=== PATIENT | female | born 1955 | race Caucasian/White ===

== ENCOUNTER 2019-01-11 10:32 | Inpatient (IN) | payer OTHER ==
--- NOTE | 2019-01-11 10:46 | ED ---
Psychiatric Complaint - HPI Summary HPI Summary: This patient is a 63 year old F presenting to ED chief complaint of "hearing mean voices". Two years ago the patients maribel was diagnosed with inoperable glioblastoma so he underwent chemotherapy. Patient was furious and angry and took a long time to understand it. Patients maribel was doing well on treatment , but he got pneumonia and passed this past July. Patient feels lost without him and is having trouble adapting. She has difficulty remembering things and is getting confused. She is sleeping a lot, but is eating normally. She reports no SI/HI in the room but states she took 8 pills of Tylenol at once a while ago. She has not taken any Tylenol today. The patient rates the pain 0/10 in severity. Symptoms aggravated by recent stress of fiance medical conditions. Symptoms alleviated by nothing. Patient denies fever. - History Of Current Complaint Hx Obtained From: Patient Onset/Duration: Gradual Onset, Lasting Weeks - 2 years, Still Present, Worse Since Timing: Constant Severity Initially: Moderate Severity Currently: Moderate Character: Depressed, Angry Aggravating Factor(s): Recent Stress - Patient's fiance dx with glioblastoma and recently passed Alleviating Factor(s): Nothing Associated Signs And Symptoms: Positive: Confused, Sleep Disturbance. Negative : Appetite Change Has Suicidal: Denies: Thoughts Has Homicidal: Denies: Thoughts Recent Stressor(s): Fiance medical conditions and passing - Allergies/Home Medications Allergies/Adverse Reactions: Allergies Allergy/AdvReac Type Severity Reaction Status Date / Time codeine Allergy Tongue Verified 01/11/19 10:49 swelling olopatadine [From Patanol] Allergy Eye Verified 01/11/19 10:49 swelling oxycodone Allergy Makes Verified 01/11/19 10:49 patient feel awful Tetanus Vaccines and Toxoid Allergy Muscle Ache Verified 01/11/19 10:49 Home Medications: Home Medications Acetaminophen/Diphenhydramine [Tylenol Pm Ex-Strength Caplet] 1 each PO BEDTIME 01/11/19 [History Confirmed 01/11/19] Black Cohosh Root Extract [Black Cohosh Extract] 80 mg PO DAILY 01/11/19 [ History Confirmed 01/11/19] Carisoprodol TAB* [Soma TAB*] 250 mg PO TID PRN 01/11/19 [History Confirmed ] Cinnamon Bark [Cinnamon] 1,000 mg PO DAILY 01/11/19 [History Confirmed 01/11/19] Flaxseed Oil [Myra-3 Flaxseed Oil] 1,000 mg PO BID 01/11/19 [History Confirmed 01/11/19] Fluticasone Propionate [24 Hour Allergy Relief] 2 spray BOTH NARES DAILY [History Confirmed 01/11/19] Ibuprofen TAB* [Advil TAB*] 200 mg PO Q8H PRN 01/11/19 [History Confirmed ] Lidocaine 2% VISCOUS* 5 ml SWISH SPIT .Q3-4H PRN 01/11/19 [History Confirmed ] Losartan Potassium [Cozaar] 50 mg PO DAILY 01/11/19 [History Confirmed 01/11/19] Magnesium Oxide [Magnesium] 300 mg PO DAILY 01/11/19 [History Confirmed 01/11/19 ] Menthol [Absorbine Pain Relieving] 1 applic TOPICAL DAILY PRN 01/11/19 [History Confirmed 01/11/19] Methyl Salicylate/Menth/Camph [[place] Muscle Rub] 1 applic TOPICAL DAILY [History Confirmed 01/11/19] Naproxen [Naproxen 500 mg tab] 500 mg PO BID 01/11/19 [History Confirmed ] PARoxetine HCL TAB* [Paxil TAB*] 20 mg PO DAILY 01/11/19 [History Confirmed ] Pioglitazone HCl 45 mg PO DAILY 01/11/19 [History Confirmed 01/11/19] Triamcinolone 0.1% OINT(NF) [Kenolog 0.1% OINT(NF)] 1 applic TOPICAL BID [History Confirmed 01/11/19] Vitamin A 8,000 unit PO DAILY 01/11/19 [History Confirmed 01/11/19] diPHENhydraMINE PO* [Benadryl PO 25 MG TAB*] 25 mg PO Q6H PRN 01/11/19 [History Confirmed 01/11/19] glipiZIDE TAB* [Glucotrol TAB*] 10 mg PO QAM 01/11/19 [History Confirmed ] glipiZIDE TAB* [Glucotrol TAB*] 10 mg PO QPM 01/11/19 [History Confirmed ] hydrOXYzine pamoate [Hydroxyzine Pamoate] 25 - 50 mg PO QID PRN 01/11/19 [ History Confirmed 01/11/19] PMH/Surg Hx/FS Hx/Imm Hx Endocrine/Hematology History: Reports: Hx Diabetes Cardiovascular History: Reports: Hx Hypertension Denies: Hx Pacemaker/ICD Respiratory History: Reports: Hx Asthma History: Denies: Hx Renal Disease Musculoskeletal History: Reports: Other Musculoskeletal History - left shoulder pinched nerve Sensory History: Reports: 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 HYSTERECTOMY,. RHINOPLASTY(BONE REMOVAL IN SINUS) - Family History Known Family History: Positive: Hypertension, Other - Stroke - Social History Alcohol Use: Occasionally Hx Substance Use: No Substance Use Type: Reports: None Hx Tobacco Use: No Smoking Status (MU): Never Smoked Tobacco Review of Systems Negative: Fever Neurological: Other - Confusion, difficulty remembering Psychological: Other - "Feels lost", "hearing mean voices" Positive: Depressed All Other Systems Reviewed And Are Negative: Yes Physical Exam - Summary Physical Exam Summary: VITAL SIGNS: Reviewed. GENERAL: Patient is a well-developed and nourished femle who is lying comfortable in the stretcher. Patient is not in any acute respiratory distress. HEAD AND FACE: No signs of trauma. No ecchymosis, hematomas or skull depressions. No sinus tenderness. EYES: PERRLA, EOMI x 2, No injected conjunctiva, no nystagmus. EARS: Hearing grossly intact. Ear canals and tympanic membranes are within normal limits. MOUTH: Oropharynx within normal limits. NECK: Supple, trachea is midline, no adenopathy, no JVD, no carotid bruit, no c- spine tenderness, neck with full ROM. CHEST: Symmetric, no tenderness at palpation. LUNGS: Clear to auscultation bilaterally. No wheezing or crackles. CVS: Regular rate and rhythm, S1 and S2 present, no murmurs or gallops appreciated. ABDOMEN: Soft, non-tender. No signs of distention. No rebound, no guarding, and no masses palpated. Bowel sounds are normal. EXTREMITIES: FROM in all major joints, no edema, no cyanosis or clubbing. NEURO: Alert and oriented x 3. No acute neurological deficits. Speech is normal and follows commands. SKIN: Dry and warm. PSYCH: Depressed, quiet, and denies any suicidal thoughts or plan. No homicidal thoughts or plan. No signs of psychosis or pressure speech. No tangential speech. Triage Information Reviewed: Yes Vital Signs On Initial Exam: Initial Vitals Temp Pulse Resp BP Pulse Ox 99.7 F 95 20 135/75 100 01/11/19 10:42 01/11/19 10:42 01/11/19 10:42 01/11/19 10:42 01/11/19 10:42 Vital Signs Reviewed: Yes Diagnostics - Laboratory Result Diagrams: 01/11/19 10:59 01/11/19 10:59 Lab Statement: Any lab studies that have been ordered have been reviewed, and results considered in the medical decision making process. Course/Dx - Course Assessment/Plan: Blood work w/o a significant abnormality. She is medically cleared. She is awaiting a MHE. Patient is hemodynamically stable and A+O x 3. Patient was evaluated by Dr. Burnett and he recommends admission to his services. Patient will be voluntarily admitted to [facility] psych by Dr. Burnett with dx of unspecified depression. - Differential Dx/Clinical Impression Provider Diagnosis: Depression Discharge ED - Sign-Out/Discharge Documenting (check all that apply): Patient Departure - Admit Patient Received Moderate/Deep Sedation with Procedure: No - Discharge Plan Condition: Fair Disposition: PSYCHIATRIC FACILITY-[facility] - Billing Disposition and Condition Condition: FAIR Disposition: Psychiatric Facility [facility] - Attestation Statements Document Initiated by Scribe: Yes Documenting Scribe: Zain Cronin Provider For Whom Osiel is Documenting (Include Credential): Hakeem Ayoub MD Scribe Attestation: I, Zain Cronin, scribed for Hakeem Ayoub MD on 01/11/19 at 1844. Scribe Documentation Reviewed: Yes Provider Attestation: The documentation as recorded by the Zain lindsay accurately reflects the service I personally performed and the decisions made by me, Hakeem Ayoub MD Status of Scribe Document: Viewed
--- OUTSIDE RECORDS SUMMARY | 2019-01-11 10:59 | XMS REPORT | Continuity of Care Document ---
:1955 External Reference #:[id number] Author Name Ivan Hensleytay Care Team Providers Name Role Phone Hakeem Crooks III, MD Primary Care Physician Unavailable Payers Date Identification Numbers Payment Provider Subscriber Effective: 2018 Policy Number: [id number]/[employer] Lupe Barnes PayID: [id number] [address] [address] [place] [address] Effective: 2016 Policy Number: [id number] [place] Lupe Halle Cameron Onset: 2016 Group Name: Halle) [phone] [address] [address] PayID: [id number] [place] [address] Effective: 2014 Policy Number: [id number] [facility] Lupe Barnes Expires: 2015 Group Number: [id number] [address] Group Name: [place] [address] PayID: [id number] Expires: 2011 Policy Number: [id number] [facility] Lupe Barnes Group Number: [id number] [address] [address] PayID: [id number] JV De La Cruz [id number] Effective: 2011 Policy Number: [id number] [facility] Lupe Barnes ([place]) Expires: 2014 PayID: [id number] [address] [place] [address] Advance Directives Type Date Description Status Comment Other Directive 12/22/2016 Health Care Proxy Current and Verified Problems Active Problems Provider Date Type 2 diabetes mellitus Prabha Baires N.PRonald Onset: 11/01/2010 Hyperlipidemia Prabha Baires N.Leona Onset: 11/01/2010 Diverticulitis of colon Prabha Baires N.P. Onset: 11/01/2010 Essential hypertension Vivian Fitzgerald M.D. Onset: 10/07/2011 Cervical spondylosis without myelopathy Alex Bui M.D. Onset: 08/11/2014 Adhesive capsulitis of shoulder Tayo Persaud MD Onset: 04/20/2017 Calcific tendinitis of left shoulder Tayo Persaud MD Onset: 04/20/2017 Family History Date Family Member(s) Observation Comments General Hypertension General Diabetes General Heart Disease General Stroke Father due to Tillar's () - age 50 Chorea Mother due to Stroke () - age 62 - HTN, Hyperlipidemia First Brother due to Overdose () - age 21 Second Brother Subtance Abuse Third Brother Etoha Fourth Brother Etoha Fifth Brother Etoha First Sister Etoha Social History Type Date Description Comments Sex Unknown Marital Status Lives With Spouse Occupation [employer] ETOH Use Occasionally consumes alcohol Tobacco Use Start: Unknown Patient has never smoked Recreational Drug Use Denies Drug Use Smoking Status Reviewed: 12/18/18 Patient has never smoked Exercise Type/Frequency Exercises regularly Walks daily Allergies, Adverse Reactions, Alerts Active Allergies Reaction Severity Comments Date Tylenol W/Codeine 07/14/2009 Tetanus 07/14/2009 Statins muscle aches 07/14/2009 Patanol Caused eyes to swell 09/28/2010 Cyclobenzaprine flu-like s/s 04/20/2017 Medications Active Medications SIG Qnty Indications Ordering Date Provider Triamcinolone apply topically to 80gm L20.9 Gustabo Medina NP 09/28/2018 Acetonide affected area(s) 0.1% two times daily Ointment Losartan Potassium 1 by mouth every 30tabs I10 Prabha Baires, 09/24/2018 day N.P. 50mg Tablets Paroxetine HCL 1 by mouth every 30tabs F41.9 Prabha Baires, 09/21/2018 20mg day N.P. Tablets Hydroxyzine Pamoate take 1 to 2 60caps F41.9 Prabha Baires, 08/24/2017 capsules by mouth N.P. 25mg Capsules four times daily as needed for anxiety Fluticasone 2 sprays each 16units J01.90 Gustabo Medina NP 05/25/2017 Propionate nostril qd. 50mcg/Act Suspension Pioglitazone HCL take 1 tablet by 90tabs E11.9 Prabha Viry, 05/25/2017 45mg mouth every day N.P. Tablets Carisoprodol take 1 by mouth 20tabs M75.02 Tayo Persaud, 03/03/2017 250mg three times a day MD Tablets Lidocaine Viscous swish and gargle 5 100ml Prabha Viry, 03/08/2016 2% ml every 3- 4 N.P. Solution hours as needed Glucometer Use to check blood 1units Prabha Viry, 07/03/2015 sugars daily N.P. Test Strips To test glucose 120units Prabha Viry, 07/03/2015 levels: fasting and N.P. 2 hours after meals Lancets To use for glucose 120units Prabha Viry, 07/03/2015 testing 4 times N.P. daily Glipizide take 2 tablets by 360tabs E11.9 Prabha Viry, 08/29/2014 10mg mouth in the N.P. Tablets morning and 2 tablets by mouth at night Naproxen 1 tablet twice a 60tabs M54.2 Prabha Viry, 07/04/2014 500mg day as needed N.P. Tablets Advil 3 qd as needed Hakeem Martin 11/28/2013 200mg Tablets Kacy Crooks Asorbine apply to back and Vivian Fitzgerald, 07/24/2013 4% Menthol calves as needed MLaya Black Cohosh Extract Vivian Fitzgerald, 10/07/2011 MRonaldDRonald 80mg Capsules Benadryl 1 by mouth every Unknown 25mg 6hr as needed Capsules Tylenol PM Extra 1 by mouth every Unknown Strength night at bedtime as 500-25mg needed Tablets Cinnamon 2 by mouth every Unknown 500mg day Capsules Flax Seed Oil 2 by mouth in the Unknown 1000mg am and hs Capsules Lidocaine Viscous Swish And Gargle 5 Unknown 2% ML Every 3- 4 Hours Solution as Needed Fluarix Quadrivalent To Be Administered Unknown By Pharmacist For 0.5ml Raquel Immunization Ramona [place] Muscle Unknown Rub Cream Vitamin A Unknown 8000Unit Capsules Magnesium 1-2 by mouth every Unknown 300mg day Capsules History Medications Ezetimibe 1 by mouth every 30tabs E78.00 Gustabo Medina NP 09/28/2018 - 10mg Tablets day 12/17/2018 Triamcinolone apply thin film 80gm L20.9 Gustabo Medina NP 09/28/2018 - Acetonide twice daily 09/28/2018 0.1% Cream Escitalopram Oxalate 1/2 tab once 30tabs F32.89 Gustabo Medina NP 03/26/2018 - daily for 1 week 09/21/2018 10mg Tablets then increase to 1 tab daily. Paroxetine HCL 1 by mouth every 30tabs F41.9 Gustabo Medina NP 09/19/2017 - 20mg day 03/26/2018 Tablets Crestor one by mouth 45tabs Prabha Baires, 09/01/2017 - 5mg Tablets every other N.P. 03/26/2018 evening Amoxicillin/Clavulana take one tablet 20tabs J01.90 Gustabo Medina NP 2017 - te Potassium q12 hours for 10 06/04/2017 875-125mg days Tablets Valium take 1-2 tabs 30 2tabs Gustabo Medina NP 03/21/2017 - 5mg Tablets min prior to mri 03/26/2018 Livalo one by mouth at 90tabs E78.0 Prabha Baires, 02/21/2017 - 2mg Tablets bedtime N.P. 03/26/2018 Cyclobenzaprine HCL 1 by mouth three 30tabs Prabha Baires, 01/17/2017 - 5mg times a day as N.P. 03/21/2017 Tablets needed muscle spasms Pioglitazone HCL one tab daily 30tabs E11.9 Prabha Baires, 08/25/2016 - 30mg N.P. 05/25/2017 Tablets Valacyclovir HCL 1 tablet three 21tabs B02.9 Gustabo Medina NP 03/30/2016 - 1gm times daily for 7 08/25/2016 Tablets days Pioglitazone HCL One po daily 90tabs E11.9 Prabha Baires, 11/03/2015 - 45mg N.P. 08/25/2016 Tablets Livalo one by mouth at 90tabs E78.0 Gustabo Medina NP 11/03/2015 - 2mg Tablets bedtime 03/30/2016 Lidocaine Viscous swish and gargle 100ml Prabha Varn, 09/10/2015 - 2% 5 ml every 3- 4 N.P. 09/20/2015 Solution hours as needed Levofloxacin 1 by mouth every 10tabs G00.9 George Diaz 07/08/2015 - 500mg day Kacy Cuevas 07/22/2015 Tablets Actos 1 by mouth every 90tabs E11.9 Prabha Baires, 07/07/2015 - 30mg Tablets day N.P. 11/03/2015 Rocephin 2 grams IV in 4units Other Ordering 07/03/2015 - 2Grams 20cc over 10 min Provider 07/07/2015 Solution Rec every 12 hrs through [facility] Pioglitazone HCL 1 by mouth every 90tabs Prabha Baires, 09/05/2014 - 15mg day N.P. 07/07/2015 Tablets Paroxetine HCL take one tablet 60tabs F41.9 Gustabo Medina NP 07/04/2014 - 10mg once daily for 09/19/2017 Tablets one week and increase to two tablets daily. Actos 1 by mouth every 30tabs Prabha Viry, 07/04/2014 - 15mg Tablets day N.P. 09/05/2014 Carisoprodol 1 by mouth three 30tabs M62.838 Prabha Baires, 06/06/2014 - 350mg times daily as N.P. 07/03/2015 Tablets needed Metaxalone take 1 tablet 3 30tabs Prabha Baires, 05/19/2014 - 800mg times a day as N.P. 06/06/2014 Tablets needed Premier Convex Skin Lonnie Diaz 04/28/2014 - Barrier/Nevin Vergara M.D.,FACP 04/28/2014 Flange/1-/4" 1-05/18" Misc Venlafaxine HCL 1 tab po daily 30tabs 300.00 Bong Mejias, 03/19/2014 - 37.5mg [employer] 06/06/2014 Tablets Venlafaxine HCL ER 1 tab po daily 28tabs 300.00 Bong Mejias, 03/19/2014 - 75mg x's 28 days [employer] 04/20/2014 Tablets ER 24HR Venlafaxine HCL 2 tab po daily 60tabs 300.00 Bong Mejias, 03/19/2014 - 75mg [employer] 04/20/2014 Tablets Paroxetine HCL wk 1-2 3 tabs po 84tabs 300.00 Bong Mejias, 03/19/2014 - 10mg daily wk 2-3 2 [employer] 04/25/2014 Tablets tabs po daily wk 4-6 1 tab po daily wk 7 discontinue Baclofen take 1 tablet by 20tabs 300.00 Lonnie Diaz 03/19/2014 - 10mg Tablets mouth three times Kacy Vergara,[facility] 05/19/2014 a day as needed muscle spasm pain Ativan 1 tab po as 30tabs 300.00 Bong Mejias 03/19/2014 - 0.5mg Tablets needed every 8 [employer] 05/06/2014 hours Januvia 1 by mouth every 90tabs 250.00 Hakeem Martin 02/11/2014 - 100mg Tablets day Kacy Crooks 03/18/2014 Paroxetine HCL 1 tablet by mouth 30tabs 300.00 Lonnie Diaz 12/30/2013 - 40mg mouth daily Kacy Vergara,[facility] 03/19/2014 Tablets Augmentin 1 by mouth twice 20tabs Hakeem Martin 11/28/2013 - 875-125mg a day Kacy Crooks 02/11/2014 Tablets Metformin HCL ER Take 1 tablet 30tabs 250.00 Vivian Fitzgerald 10/25/2013 - 750mg daily M.Joe 02/11/2014 Tablets ER 24HR Pravastatin Sodium 1 tablet daily at 30tabs 272.4 Vivian Fitzgerald, 10/25/2013 - 40mg bedtime M.Joe 02/11/2014 Tablets Paroxetine HCL Take 2 tablets 60tabs 300.00 Vivian Fitzgerald, 10/25/2013 - 10mg daily x 1 week, M.Joe 12/09/2013 Tablets then 1 tablet daily x 2 weeks, then 1 tablet every other day x 2 weeks, then stop Amoxicillin/Clavulana 1 by mouth twice 20tabs 465.9 Hakeem Martin 08/21/2013 - te Potassium a day Kacy Crooks 10/25/2013 500-125mg Tablets Tylenol Cold Head prn Hakeem Martin 08/21/2013 - Congestion Day/Night Kacy Crooks 06/06/2014 Capsules Ciprodex instill 4 drops 7.500ml 380.22 Vivian Fitzgerald, 07/24/2013 - 0.3-0.1% into affected ear M.D. 08/25/2016 Suspension 2 times per day Co Q-10 1 po qd 90caps 272.4 Vivian Fitzgerald, 06/17/2013 - 200mg Capsules M.D. 07/24/2013 Metformin HCL 1 po bid 180tabs 250.00 Vivian Fitzgerald, 09/24/2012 - 500mg M.D. 12/12/2012 Tablets Lorazepam take 1 tablet as 30tabs F41.9 Prabha Baires, 09/10/2012 - 0.5mg Tablets needed for N.P. 08/24/2017 anxiety every 8 hours Metformin HCL take one tablet 60tabs 250.00 Vivian Fitzgerald, 09/10/2012 - 1000mg by mouth twice a M.D. 09/24/2012 Tablets day Paroxetine HCL Take 1/2 tablet 90tabs 300.00 Vivian Fitzgerald, 05/22/2012 - 40mg daily M.D. 10/25/2013 Tablets Ofloxacin instill 5 drops 10units Prabha Baires, 02/24/2012 - 0.3% Solution In Affected N.P. 12/12/2012 Ear(S) twice a day for 7 days Niaspan take 1 tablet 90tabs 272.4 Vivian Fitzgerald, 12/23/2011 - 500mg Tablets nightly M.D. 09/10/2012 ER Aspirin Ec Take 1 tablet 250.00 Vivian Fitzgerald, 12/23/2011 - 325mg before niaspan M.D. 08/12/[address] Metformin HCL 1 po bid 180tabs 250.00 Vivian Fitzgerald, 12/23/2011 - 500mg M.D. 09/10/2012 Tablets Ofloxacin 5 gtts affected 10ml 380.22 Prabha Baires, 12/05/2011 - 0.3% Solution ear bid for 7 N.P. 12/12/2011 days Losartan Potassium Take 2 Tablets By 180tabs I10 Prabha Baires, 2011 - 25mg Mouth Once Daily N.P. 09/24/2018 Tablets Paroxetine HCL 1 po qd 90tabs 300.00 Vivian Fitzgerald, 10/07/2011 - 20mg M.D. 05/22/2012 Tablets Lisinopril 1 po qd 30tabs 401.9 Vivian Fitzgerald, 10/07/2011 - 10mg Tablets M.D. 11/29/2011 Metformin HCL 1 po bid Vivian Fitzgerald, 10/07/2011 - 500mg M.D. 12/23/2011 Tablets Glipizide ER 1 by mouth twice 180tabs 250.00 Prabha Baires, 09/26/2011 - 10mg a day N.P. 08/29/2014 Tablets ER 24HR Glipizide ER Take 1 tablet 30tabs 250.00 Vivian Fitzgerald, 08/19/2011 - 10mg daily M.D. 09/07/2011 Tablets ER 24HR Niaspan take 1 tablet 30tabs 272.4 Vivian Fitzgerald, 08/19/2011 - 500mg Tablets nightly M.D. 09/05/2011 ER Lisinopril take 1 tablet 30tabs 401.9 Vivian Fitzgerald, 08/19/2011 - 5mg Tablets orally once a day M.D. 10/07/2011 Buspirone HCL 1 po bid 60tabs 300.00 Josiane 08/05/2011 - 15mg Mayer, M.D. 08/19/2011 Tablets Lorazepam take 1 tablet as 20tabs Vivian Fitzgerald, 08/03/2011 - 0.5mg Tablets needed for M.D. 08/24/2011 anxiety every 8 hours Metformin HCL 1 po bid Vivian Fitzgerald, 07/19/2011 - 500mg M.D. 09/26/2011 Tablets Cortisporin 4gtts tid for 10 10ml 380.22 Vivian Fitzgerald, 07/19/2011 - 3.5-81698-1 days M.D. 07/29/2011 Solution Vicodin 1-2 by mouth 30tabs 380.22 Vivian Fitzgerald 07/19/2011 - 5-500mg Tablets every 4-6 hours M.D. 08/19/2011 and needed for pain Augmentin one by mouth 20tabs 461.9 Vivian Fitzgerald, 07/19/2011 - 875-125mg every 12 hours M.D. 07/29/2011 Tablets for ten days Fluticasone 1 spray each 1units 461.9 Vivian Fitzgerald, 07/19/2011 - Propionate nostril daily as M.D. 10/07/2011 50mcg/Act needed Suspension Metformin HCL 2 po at dinner 180tabs Spring Guillen, 03/30/2011 - 500mg M.D., FACP 07/19/2011 Tablets Augmentin one by mouth 20tabs 461.9 Spring Guillen, 03/09/2011 - 875-125mg every 12 hours M.D., FACP 03/23/2011 Tablets for 14 days Neomycin/Polymyxin/HC 5 gtts in each 10ml 380.10 Spring Guillen, 01/05/2011 - ear qid for 7 - M.D., FACP 01/15/2011 3.5-28505-9 Solution 10 days Cyclobenzaprine HCL take 1-2 tablet 30tabs Hakeem Martin 12/28/2010 - 5mg by mouth manuel Crooks M.D. 05/06/2014 Tablets times as needed Triamcinolone apply bid until 30gm 916.4 Spring Mindy, 12/01/2010 - Acetonide clear M.D., FACP 03/09/2011 0.1% Cream Paroxetine HCL 1 po bid 60tabs 300.00 Springjoce Guillen, 12/01/2010 - 10mg M.D., FACP 10/07/2011 Tablets Xanax one by mouth up 20tabs 300.00 Spring Guillen, 11/01/2010 - 0.25mg Tablets to three times M.D., FACP 12/01/2010 daily as needed for anxiety Paroxetine HCL 1 po qd 30tabs 300.00 Spring Guillen, 11/01/2010 - 20mg M.D., FACP 12/01/2010 Tablets Flexeril 1 tablet three 30tabs Spring Guillen, 11/01/2010 - 5mg Tablets times a day as M.D., FACP 12/28/2010 needed Fexofenadine HCL 1 po qd 90tabs Spring Guillen, 09/23/2010 - 180mg M.D., [facility] 10/07/2011 Tablets Patanol 1 gtt both eyes 5ml Spring Guillen, 09/23/2010 - 0.1% Solution qd prn allergies M.D., [facility] 09/28/2010 Amoxicillin/Clavulana 1 by mouth twice 20tabs Spring Guillen, 06/01/2010 - te Potassium a day M.D., [facility] 06/11/2010 500-125mg Tablets [place] Allergy 1 by mouth every Unknown - 180mg day 08/25/2016 Tablets Hemorrhoidal Maximum apply around the 1units Unknown - Strength/Aloe anal area x 7-10 08/25/2016 days 1-0.25-14.4-15% Cream Aleve 1 by mouth twice Unknown - 220mg Capsules a day as needed 08/25/2016 Oxycodone HCL 1 by mouth q 4 Unknown - 5mg hours prn 08/25/2016 Tablets Soma 1 by mouth up to 90tabs Gustabo Medina, [employer] - 350mg Tablets three times a day 01/17/2017 as needed Potassium Gluconate Unknown - ER 12/18/2018 595mg Tablets ER Carisoprodol take 1 tablet by Unknown - 350mg mouth Up To three 12/25/2016 Tablets times a day if needed Max 3 Tabs/ Valacyclovir HCL Take 1 Tablet By Unknown - 1gm Mouth 3 Times A 03/26/2018 Tablets Day For 7 Days Livalo Take 1 Tablet AT Unknown - 2mg Tablets Bedtime 12/25/2016 CBD Tablets Unknown - 12/17/2018 [place] Allergy 1 po qd 30tabs Unknown - 07/24/2013 Tablets Metformin HCL take one tablet 180tabs 250.00 Unknown - 1000mg by mouth twice a 07/07/2015 Tablets day Paxil 1 po bid 90tabs Vivian Fitzegrald, - 10mg Tablets M.D. 10/07/2011 Loperamide A-D prn Unknown - 2mg 10/07/2011 Tablets Triamcinolone In apply to rash 2x 30gm Unknown - Orabase per day 10/07/2011 0.1% Paste Refresh Eye Itch Unknown - Relief 10/07/2011 0.025% Solution Acetaminophen PM 1 -2 tablets as Unknown - needed for sleep 05/06/2014 500-25mg Tablets Ibuprofen prn Unknown - 200mg 10/07/2011 Capsules Neomycin/Polymyxin/HC 4 drops to both 10cc Unknown - ears qid 08/19/2011 3.5-52693-9 Solution Estroblend Unknown - 10/07/2011 Metformin HCL XR 1 tablet with 90tabs Spring Mindy, - 500mg dinner M.D., FACP 03/30/2011 Tablets Medications Administered in Office Medication SIG Qnty Indications Ordering Provider Date Triamcinolone (Kenalog) Loulou Luevano PA-C 06/01/2017 Injection Triamcinolone (Kenalog) Loulou Luevano PA-C 03/03/2017 Injection Influenza Virus Vaccine Unknown 01/30/2014 Injection Immunizations CPT Code Status Date Vaccine Lot # [id number] Given 02/21/2016 Flu Vaccine NOS [id number] Given 04/18/2015 Influenza Virus Vaccine, Quadrivalent, Split, Preservative Free [id number] Given 10/27/2014 Tdap - Tetanus/Diptheria/Acellular Pertussis [id number] Given 02/11/2014 Zoster (Zostavax) [id number] Given 02/11/2014 Pneumonia Vaccine [id number] Given 02/23/2012 Afluria Vaccine Vital Signs Date Vital Result Comment 12/18/2018 3:48pm Height 65 inches 5'5" Weight 164.00 lb Heart Rate 75 /min BP Systolic 154 mmHg BP Diastolic 85 mmHg Body Temperature 97.7 F O2 % BldC Oximetry 97 % BMI (Body Mass Index) 27.3 kg/m2 09/28/2018 8:40am Height 65 inches 5'5" Weight 153.38 lb Heart Rate 79 /min BP Systolic 122 mmHg BP Diastolic 71 mmHg Body Temperature 97.9 F O2 % BldC Oximetry 97 % BMI (Body Mass Index) 25.5 kg/m2 03/26/2018 8:50am Height 65 inches 5'5" Weight 169.00 lb with shoes Heart Rate 97 /min BP Systolic 126 mmHg BP Diastolic 82 mmHg O2 % BldC Oximetry 95 % BMI (Body Mass Index) 28.1 kg/m2 01/02/2018 8:04am Height 65 inches 5'5" Heart Rate 72 /min BP Systolic Sitting 122 mmHg BP Diastolic Sitting 80 mmHg Respiratory Rate 16 /min Body Temperature 97.5 F Pain Level 2 10/26/2017 7:57am Height 65 inches 5'5" Weight 160.00 lb BP Systolic 128 mmHg BP Diastolic 78 mmHg Respiratory Rate 18 /min Pain Level 6 BMI (Body Mass Index) 26.6 kg/m2 09/21/2017 9:00am Height 64.50 inches 5'4.50" Weight 157.50 lb Heart Rate 67 /min BP Systolic 120 mmHg BP Diastolic 67 mmHg Body Temperature 97.4 F O2 % BldC Oximetry 98 % BMI (Body Mass Index) 26.6 kg/m2 09/11/2017 3:19pm Height 64.50 inches 5'4.50" Weight 64.00 lb Heart Rate 71 /min BP Systolic 130 mmHg BP Diastolic 70 mmHg Body Temperature 97.4 F O2 % BldC Oximetry 96 % BMI (Body Mass Index) 10.8 kg/m2 08/25/2017 10:31am Weight 161.50 lb Heart Rate 77 /min BP Systolic 140 mmHg BP Diastolic 66 mmHg Body Temperature 97.1 F O2 % BldC Oximetry 96 % 08/24/2017 12:07pm Weight 161.75 lb Heart Rate 78 /min BP Systolic 140 mmHg BP Diastolic 72 mmHg Body Temperature 97.6 F O2 % BldC Oximetry 98 % 08/22/2017 1:13pm Height 65 inches 5'5" Weight 160.00 lb Heart Rate 100 /min BP Systolic Sitting 170 mmHg BP Diastolic Sitting 86 mmHg Respiratory Rate 16 /min Pain Level 0 BMI (Body Mass Index) 26.6 kg/m2 06/01/2017 8:01am Height 65 inches 5'5" Weight 160.00 lb BP Systolic 126 mmHg BP Diastolic 78 mmHg Respiratory Rate 18 /min Pain Level 0 BMI (Body Mass Index) 26.6 kg/m2 05/25/2017 9:36am Weight 170.00 lb Heart Rate 97 /min BP Systolic 132 mmHg BP Diastolic 70 mmHg Body Temperature 97.3 F O2 % BldC Oximetry 96 % 04/21/2017 8:36am Height 65 inches 5'5" Weight 170.00 lb Heart Rate 73 /min BP Systolic Sitting 132 mmHg BP Diastolic Sitting 76 mmHg Body Temperature 97.8 F O2 % BldC Oximetry 98 % BMI (Body Mass Index) 28.3 kg/m2 04/20/2017 8:12am Height 65 inches 5'5" Weight 160.00 lb per pt Heart Rate 74 /min reg BP Systolic Sitting 116 mmHg Rue, lg cuff BP Diastolic Sitting 84 mmHg Rue, lg cuff Respiratory Rate 16 /min Body Temperature 96.9 F tympanic Pain Level 3 left shoulder BMI (Body Mass Index) 26.6 kg/m2 03/21/2017 8:31am Weight 168.31 lb Heart Rate 75 /min BP Systolic 146 mmHg BP Diastolic 78 mmHg Body Temperature 97.6 F O2 % BldC Oximetry 98 % 03/03/2017 9:19am Height 65 inches 5'5" Weight 165.00 lb Heart Rate 76 /min BP Systolic 138 mmHg BP Diastolic 88 mmHg Body Temperature 95.8 F Pain Level 6 BMI (Body Mass Index) 27.5 kg/m2 02/21/2017 10:17am Weight 165.25 lb Heart Rate 92 /min BP Systolic 148 mmHg BP Diastolic 78 mmHg Body Temperature 97.4 F O2 % BldC Oximetry 96 % 01/31/2017 10:29am Weight 165.25 lb Heart Rate 89 /min BP Systolic 147 mmHg BP Diastolic 76 mmHg Body Temperature 98.5 F O2 % BldC Oximetry 96 % 12/26/2016 8:51am Weight 166.00 lb Heart Rate 84 /min BP Systolic Sitting 150 mmHg BP Diastolic Sitting 80 mmHg Body Temperature 96.5 F O2 % BldC Oximetry 97 % 12/01/2016 2:33pm Weight 164.25 lb Heart Rate 90 /min BP Systolic 140 mmHg BP Diastolic 80 mmHg Body Temperature 98.1 F O2 % BldC Oximetry 97 % 08/25/2016 1:09pm Weight 164.00 lb Heart Rate 89 /min BP Systolic Sitting 136 mmHg BP Diastolic Sitting 74 mmHg Body Temperature 97.9 F O2 % BldC Oximetry 95 % 03/30/2016 10:46am Weight 167.00 lb Heart Rate 86 /min BP Systolic Sitting 124 mmHg BP Diastolic Sitting 72 mmHg Respiratory Rate 15 /min Body Temperature 98.4 F O2 % BldC Oximetry 98 % 11/03/2015 8:49am Weight 161.00 lb Heart Rate 80 /min BP Systolic Sitting 124 mmHg BP Diastolic Sitting 80 mmHg Respiratory Rate 15 /min Body Temperature 98.0 F O2 % BldC Oximetry 98 % 07/22/2015 1:36pm Height 65 inches 5'5" Weight 138.50 lb Heart Rate 100 /min BP Systolic Sitting 112 mmHg BP Diastolic Sitting 64 mmHg Respiratory Rate 14 /min Body Temperature 99.4 F BMI (Body Mass Index) 23.0 kg/m2 07/22/2015 11:41am Weight 138.00 lb Heart Rate 88 /min BP Systolic Sitting 112 mmHg BP Diastolic Sitting 70 mmHg O2 % BldC Oximetry 98 % 07/17/2015 10:26am Height 65 inches 5'5" Weight 137.00 lb Heart Rate 91 /min BP Systolic Sitting 118 mmHg BP Diastolic Sitting 64 mmHg Body Temperature 98.3 F Pain Level 3 O2 % BldC Oximetry 95 % BMI (Body Mass Index) 22.8 kg/m2 07/08/2015 1:03pm Height 65 inches 5'5" Weight 134.38 lb Heart Rate 100 /min BP Systolic Sitting 124 mmHg BP Diastolic Sitting 86 mmHg Respiratory Rate 14 /min Body Temperature 99.1 F BMI (Body Mass Index) 22.4 kg/m2 07/07/2015 9:16am Weight 134.00 lb Heart Rate 100 /min BP Systolic Sitting 124 mmHg BP Diastolic Sitting 82 mmHg Respiratory Rate 15 /min Body Temperature 98.0 F O2 % BldC Oximetry 98 % 09/08/2014 3:28pm Weight 158.00 lb Heart Rate 95 /min BP Systolic Sitting 136 mmHg BP Diastolic Sitting 66 mmHg Body Temperature 97.0 F 09/01/2014 9:17am Height 65 inches 5'5" Weight 157.00 lb Heart Rate 78 /min BP Systolic Sitting 140 mmHg BP Diastolic Sitting 80 mmHg Pain Level 4 neck/r shoulder BMI (Body Mass Index) 26.1 kg/m2 08/29/2014 9:00am Height 65 inches 5'5" Weight 156.00 lb Heart Rate 79 /min BP Systolic 123 mmHg BP Diastolic 76 mmHg Body Temperature 98.0 F BMI (Body Mass Index) 26.0 kg/m2 08/15/2014 8:45am Weight 156.75 lb Heart Rate 80 /min BP Systolic Sitting 141 mmHg BP Diastolic Sitting 79 mmHg Body Temperature 97.0 F 08/11/2014 1:31pm Height 65.5 inches 5'5.50" Weight 155.00 lb Heart Rate 78 /min BP Systolic Sitting 150 mmHg BP Diastolic Sitting 90 mmHg Pain Level 8 back/neck BMI (Body Mass Index) 25.4 kg/m2 08/01/2014 8:54am Weight 152.25 lb Heart Rate 72 /min BP Systolic Sitting 138 mmHg BP Diastolic Sitting 78 mmHg Pain Level 7 07/18/2014 9:30am Height 64.75 inches 5'4.75" Weight 152.00 lb Heart Rate 73 /min BP Systolic 132 mmHg BP Diastolic 76 mmHg Body Temperature 97.4 F BMI (Body Mass Index) 25.5 kg/m2 07/04/2014 9:01am Weight 150.50 lb Heart Rate 75 /min BP Systolic Sitting 145 mmHg BP Diastolic Sitting 85 mmHg 06/20/2014 10:10am Weight 152.00 lb Heart Rate 94 /min BP Systolic Sitting 135 mmHg BP Diastolic Sitting 69 mmHg Pain Level 7 O2 % BldC Oximetry 98 % 06/06/2014 3:05pm Height 64.75 inches 5'4.75" Weight 155.00 lb Heart Rate 101 /min BP Systolic 157 mmHg BP Diastolic 87 mmHg Body Temperature 99.1 F Pain Level 8 BMI (Body Mass Index) 26.0 kg/m2 05/06/2014 1:31pm Height 64.75 inches 5'4.75" Weight 154.00 lb Heart Rate 80 /min BP Systolic Sitting 122 mmHg BP Diastolic Sitting 82 mmHg Body Temperature 98.5 F BMI (Body Mass Index) 25.8 kg/m2 04/18/2014 11:09am Weight 156.00 lb Heart Rate 116 /min BP Systolic Sitting 154 mmHg BP Diastolic Sitting 84 mmHg Body Temperature 97.1 F 03/19/2014 9:41am Weight 152.00 lb Heart Rate 85 /min BP Systolic Sitting 124 mmHg BP Diastolic Sitting 74 mmHg Body Temperature 97.6 F Pain Level 7 O2 % BldC Oximetry 98 % 02/18/2014 4:00pm Weight 153.00 lb Heart Rate 84 /min BP Systolic Sitting 126 mmHg BP Diastolic Sitting 70 mmHg 02/11/2014 2:35pm Weight 150.75 lb Heart Rate 96 /min BP Systolic Sitting 134 mmHg BP Diastolic Sitting 78 mmHg Body Temperature 98.2 F 11/28/2013 11:24am Weight 154.50 lb Heart Rate 88 /min BP Systolic Sitting 128 mmHg BP Diastolic Sitting 80 mmHg Body Temperature 98.1 F 10/25/2013 8:29am Height 64.5 inches 5'4.50" Weight 157.00 lb Heart Rate 96 /min BP Systolic Sitting 116 mmHg BP Diastolic Sitting 78 mmHg Body Temperature 97.6 F BMI (Body Mass Index) 26.5 kg/m2 08/21/2013 9:54am Height 64.5 inches 5'4.50" Weight 154.50 lb Heart Rate 88 /min BP Systolic Sitting 130 mmHg BP Diastolic Sitting 88 mmHg Body Temperature 97.6 F O2 % BldC Oximetry 98 % BMI (Body Mass Index) 26.1 kg/m2 07/24/2013 11:39am Weight 155.50 lb Heart Rate 88 /min BP Systolic 138 mmHg BP Diastolic 82 mmHg Respiratory Rate 16 /min Body Temperature 97.3 F 06/17/2013 9:00am Height 64.25 inches 5'4.25" Weight 154.00 lb Heart Rate 74 /min BP Systolic Sitting 138 mmHg BP Diastolic Sitting 84 mmHg BMI (Body Mass Index) 26.2 kg/m2 03/15/2013 10:52am Weight 154.25 lb Heart Rate 72 /min BP Systolic 130 mmHg BP Diastolic 64 mmHg 12/12/2012 9:02am Weight 154.00 lb Heart Rate 76 /min BP Systolic Sitting 130 mmHg BP Diastolic Sitting 74 mmHg 09/10/2012 9:40am Weight 158.00 lb Heart Rate 78 /min BP Systolic Sitting 132 mmHg BP Diastolic Sitting 84 mmHg 12/23/2011 11:37am Height 65 inches 5'5" Weight 152.00 lb Heart Rate 76 /min BP Systolic Sitting 116 mmHg BP Diastolic Sitting 74 mmHg BMI (Body Mass Index) 25.3 kg/m2 12/05/2011 9:48am Height 65 inches 5'5" Weight 150.00 lb Heart Rate 80 /min BP Systolic Sitting 114 mmHg BP Diastolic Sitting 70 mmHg Body Temperature 98.6 F BMI (Body Mass Index) 25.0 kg/m2 10/07/2011 11:49am Height 65 inches 5'5" Weight 150.00 lb Heart Rate 74 /min BP Systolic Sitting 128 mmHg BP Diastolic Sitting 72 mmHg BMI (Body Mass Index) 25.0 kg/m2 08/24/2011 2:48pm Height 65 inches 5'5" Weight 153.00 lb Heart Rate 72 /min BP Systolic Sitting 124 mmHg BP Diastolic Sitting 76 mmHg BMI (Body Mass Index) 25.5 kg/m2 08/19/2011 10:31am Height 65 inches 5'5" Weight 153.00 lb Heart Rate 100 /min BP Systolic Sitting 166 mmHg BP Diastolic Sitting 62 mmHg BMI (Body Mass Index) 25.5 kg/m2 08/05/2011 11:04am Height 65 inches 5'5" Weight 148.75 lb Heart Rate 100 /min BP Systolic Sitting 140 mmHg BP Diastolic Sitting 80 mmHg Respiratory Rate 40 /min BMI (Body Mass Index) 24.8 kg/m2 07/19/2011 9:33am Height 65 inches 5'5" Weight 155.50 lb Heart Rate 78 /min BP Systolic Sitting 138 mmHg BP Diastolic Sitting 80 mmHg Body Temperature 99.0 F BMI (Body Mass Index) 25.9 kg/m2 03/30/2011 9:03am Height 65 inches 5'5" Weight 155.00 lb Heart Rate 76 /min BP Systolic Sitting 134 mmHg BP Diastolic Sitting 88 mmHg BMI (Body Mass Index) 25.8 kg/m2 03/09/2011 1:01pm Height 65 inches 5'5" Weight 155.00 lb Heart Rate 80 /min BP Systolic Sitting 130 mmHg L BP Diastolic Sitting 78 mmHg L Body Temperature 98.9 F BMI (Body Mass Index) 25.8 kg/m2 02/11/2011 11:09am Height 65 inches 5'5" Weight 155.00 lb Heart Rate 68 /min BP Systolic Sitting 122 mmHg BP Diastolic Sitting 74 mmHg BMI (Body Mass Index) 25.8 kg/m2 01/05/2011 4:04pm Height 65 inches 5'5" Weight 154.00 lb Heart Rate 66 /min BP Systolic Sitting 124 mmHg BP Diastolic Sitting 82 mmHg Body Temperature 99.1 F BMI (Body Mass Index) 25.6 kg/m2 12/01/2010 9:02am Height 65 inches 5'5" Weight 148.00 lb Heart Rate 62 /min BP Systolic Sitting 128 mmHg BP Diastolic Sitting 74 mmHg BMI (Body Mass Index) 24.6 kg/m2 11/01/2010 11:00am Height 65 inches 5'5" Weight 151.00 lb Heart Rate 92 /min BP Systolic Sitting 124 mmHg BP Diastolic Sitting 76 mmHg BMI (Body Mass Index) 25.1 kg/m2 09/23/2010 10:18am Height 65 inches 5'5" Weight 150.50 lb Heart Rate 80 /min BP Systolic 126 mmHg BP Diastolic 80 mmHg Body Temperature 98.6 F BMI (Body Mass Index) 25.0 kg/m2 06/01/2010 2:55pm Weight 152.00 lb Heart Rate 92 /min BP Systolic 124 mmHg BP Diastolic 82 mmHg Body Temperature 98.3 F Results Test Date Facility Test Result H/L Range Note Drug Abuse 10/11/2018 [facility] Urine Amphetamine Negative ng/ mL 1 [address] [place] [address] [phone] Urine Barbiturates Negative ng/mL 2 Urine Benzodiazepines Negative ng/mL 3 Urine Cocaine Negative ng/mL 4 Urine Phencyclidine Negative ng/mL Cutoff: 25 Urine Tetrahydrocannabinol Negative ng/mL Cutoff: 50 5 Creatinine, Urine 90.5 mg/dL Specific [place] 1.011 pH 6.3 Oxidants Negative 6 Adulterants Comment Normal Codeine, Ur Not Detected ng/mL Cutoff: 25 7 Glmugum-1-rjcs-glucuronide, Ur Not Detected ng/mL 8 Morphine, Ur Not Detected ng/mL Cutoff: 25 9 Wniaryef-3-qcbj-glucuronide, U Not Detected ng/mL 10 6-monoacetylmorphine, Ur Not Detected ng/mL Cutoff: 25 11 Hydrocodone, Ur Not Detected ng/mL Cutoff: 25 12 Norhydrocodone, Ur Not Detected ng/mL Cutoff: 25 13 Dihydrocodeine, Ur Not Detected ng/mL Cutoff: 25 14 Hydromorphone, Ur Not Detected ng/mL Cutoff: 25 15 Pkqflgnhtcicb5cyunmkrogoqijdb Not Detected ng/mL 16 Oxycodone, Ur Not Detected ng/mL Cutoff: 25 17 Noroxycodone, Ur Not Detected ng/mL Cutoff: 25 18 Oxymorphone, Ur Not Detected ng/mL Cutoff: 25 19 Nubgfekffzg-7-dlzi-glucuronide Not Detected ng/mL 20 Noroxymorphone, Ur Not Detected ng/mL Cutoff: 25 21 Fentanyl, Ur Not Detected ng/mL Cutoff: 2 22 Norfentanyl, Ur Not Detected ng/mL Cutoff: 2 23 Meperidine, Ur Not Detected ng/mL Cutoff: 25 24 Normeperidine, Ur Not Detected ng/mL Cutoff: 25 25 Naloxone, Ur Not Detected ng/mL Cutoff: 25 26 Jrjyqbkc-7-qzdg-glucuronide, U Not Detected ng/mL 27 Methadone, Ur Not Detected ng/mL Cutoff: 25 28 Eddp, Ur Not Detected ng/mL Cutoff: 25 29 Propoxyphene, Ur Not Detected ng/mL Cutoff: 25 30 Norpropoxyphene, Ur Not Detected ng/mL Cutoff: 25 31 Tramadol, Ur Not Detected ng/mL Cutoff: 25 32 O-desmethyltramadol, Ur Not Detected ng/mL Cutoff: 25 33 Tapentadol, Ur Not Detected ng/mL Cutoff: 25 34 N-desmethyltapentadol, Ur Not Detected ng/mL Cutoff: 50 35 Rnlmdtyqjz-irie-zsizibgifnk, U Not Detected ng/mL 36 Buprenorphine, Ur Not Detected ng/mL Cutoff: 5 37 Norbuprenorphine, Ur See Comment ng/mL Cutoff: 5 38 Norbuprenorphine glucuronide Not Detected ng/mL Cutoff: 20 39 Opioid Interpretation See Comment 40 Lipid Profile 09/19/2018 [facility] Triglycerides 273 mg/dL 41 (Trig/Chol/HDL) [address] [place] [address] [phone] Cholesterol 353 mg/dL 42 HDL Cholesterol 45.8 mg/dL 43 LDL Cholesterol 253 mg/dL 44 Liver 09/19/2018 [facility] Direct 0.10 Normal 0.03-0.18 Function 101 [facility] Bilirubin mg/[place] [address] [phone] Indirect Bilirubin 0.4 mg/dL Normal 0.3-1.0 Comp Metabolic 09/19/2018 [facility] Sodium 140 mmol/L Normal 135-[address] [place] [address] [phone] Potassium 4.0 mmol/L Normal 3.5-5.0 Chloride 105 mmol/L Normal 101-111 Co2 Carbon Dioxide 28 mmol/L Normal 22-32 Anion Gap 7 mmol/L Normal 2-11 Glucose 151 mg/dL High 70-100 Blood Urea Nitrogen 17 mg/dL Normal 6-24 Creatinine 0.69 mg/dL Normal 0.51-0.95 BUN/Creatinine Ratio 24.6 High 8-20 Calcium 9.6 mg/dL Normal 8.6-10.3 Total Protein 6.9 g/dL Normal 6.4-8.9 Albumin 4.5 g/dL Normal 3.2-5.2 Globulin 2.4 g/dL Normal 2-4 Albumin/Globulin Ratio 1.9 Normal 1-3 Total Bilirubin 0.50 mg/dL Normal 0.2-1.0 Alkaline Phosphatase 66 U/L Normal 34-104 Alt 14 U/L Normal 7-52 Ast 15 U/L Normal 13-39 Egfr Non- 86.2 >60 Egfr 104.3 >60 45 Laboratory test 09/19/2018 [facility] Hemoglobin A1c 7.8 % High 4.0-5.6 [address] (Glyco HGB) [place] [address] [phone] Urine 09/19/2018 [facility] Ur Microalbumin < 15.[address] (mg/L) mg/[place] [address] [phone] Urine Creatinine 92.55 mg/dL Urine Microalbumin/Creatinine TNP <31 47 Comp Metabolic 08/31/2017 [facility] Sodium 140 mmol/L Normal 139-[address] [place] [address] [phone] Potassium 4.1 mmol/L Normal 3.5-5.0 Chloride 106 mmol/L Normal 101-111 Co2 Carbon Dioxide 27 mmol/L Normal 22-32 Anion Gap 7 mmol/L Normal 2-11 Glucose 124 mg/dL High 70-100 Blood Urea Nitrogen 19 mg/dL Normal 6-24 Creatinine 0.63 mg/dL Normal 0.51-0.95 BUN/Creatinine Ratio 30.2 High 8-20 Calcium 9.6 mg/dL Normal 8.6-10.3 Total Protein 6.8 g/dL Normal 6.4-8.9 Albumin 4.5 g/dL Normal 3.2-5.2 Globulin 2.3 g/dL Normal 2-4 Albumin/Globulin Ratio 2.0 Normal 1-3 Total Bilirubin 0.40 mg/dL Normal 0.2-1.0 Alkaline Phosphatase 60 U/L Normal 34-104 Alt 16 U/L Normal 7-52 Ast 17 U/L Normal 13-39 Egfr Non- 96.1 >60 Egfr 123.6 >60 48 Urine Microalbumin 08/31/2017 [facility] Ur Microalbumin 19.3 mg /L Random [address] (mg/L) [place] [address] [phone] Urine Creatinine 203.35 mg/dL Urine Microalbumin/Creatinine 9.4 ug/mg Normal <31 Lipid Profile 08/31/2017 [facility] Triglycerides 282 mg/dL 49 (Trig/Chol/HDL) [address] [place] [address] [phone] Cholesterol 306 mg/dL 50 HDL Cholesterol 41.1 mg/dL 51 LDL Cholesterol 209 mg/dL 52 Laboratory test 08/25/2017 [facility] Hemoglobin A1c 6.7 5-7 finding CBC Auto Diff 08/24/2017 [facility] White Blood 8.4 Normal 3.5 -10.[address] Count 10^3/[place] [address] [phone] Red Blood Count 4.75 10^6/uL Normal 4.0-5.4 Hemoglobin 14.2 g/dL Normal 12.0-16.0 Hematocrit 42 % Normal 35-47 Mean Corpuscular Volume 88 fL Normal 80-97 Mean Corpuscular Hemoglobin 30 pg Normal 27-31 Mean Corpuscular HGB Conc 34 g/dL Normal 31-36 Red Cell Distribution Width 14 % Normal 10.5-15 Platelet Count 319 10^3/uL Normal 150-450 Mean Platelet Volume 7.2 um3 Low 7.4-10.4 Abs Neutrophils 5.1 10^3/uL Normal 1.5-7.7 Abs Lymphocytes 2.7 10^3/uL Normal 1.0-4.8 Abs Monocytes 0.4 10^3/uL Normal 0-0.8 Abs Eosinophils 0.1 10^3/uL Normal 0-0.6 Abs Basophils 0.1 10^3/uL Normal 0-0.2 Abs Nucleated RBC 0 10^3/uL Granulocyte % 61.2 % Normal 38-83 Lymphocyte % 32.0 % Normal 25-47 Monocyte % 5.3 % Normal 0-7 Eosinophil % 0.9 % Normal 0-6 Basophil % 0.6 % Normal 0-2 Nucleated Red Blood Cells % 0 Comp Metabolic 08/24/2017 [facility] Sodium 143 mmol/L Normal 139-[address] [place] [address] [phone] Potassium 4.0 mmol/L Normal 3.5-5.0 Chloride 108 mmol/L Normal 101-111 Co2 Carbon Dioxide 28 mmol/L Normal 22-32 Anion Gap 7 mmol/L Normal 2-11 Glucose 102 mg/dL High 70-100 Blood Urea Nitrogen 12 mg/dL Normal 6-24 Creatinine 0.61 mg/dL Normal 0.51-0.95 BUN/Creatinine Ratio 19.7 Normal 8-20 Calcium 9.5 mg/dL Normal 8.6-10.3 Total Protein 6.8 g/dL Normal 6.4-8.9 Albumin 4.4 g/dL Normal 3.2-5.2 Globulin 2.4 g/dL Normal 2-4 Albumin/Globulin Ratio 1.8 Normal 1-3 Total Bilirubin 0.60 mg/dL Normal 0.2-1.0 Alkaline Phosphatase 52 U/L Normal 34-104 Alt 15 U/L Normal 7-52 Ast 15 U/L Normal 13-39 Egfr Non- 99.7 >60 Egfr 128.2 >60 53 Laboratory 08/24/2017 [facility] TSH (Thyroid 1.33 Normal 0.34 -5.60 test finding [address] Stim Horm) mcIU/[place] [address] [phone] Vitamin B12 336 pg/mL Normal 180-914 54 Magnesium 2.2 mg/dL Normal 1.9-2.7 Troponin-I (TnI) 0.00 ng/mL <0.04 Laboratory test 05/25/2017 [facility] Hemoglobin A1c 7.5 High 5-7 finding CBC Auto Diff 02/21/2017 [facility] White Blood 7.8 Normal 3.5 -10.[address] Count 10^3/[place] [address] [phone] Red Blood Count 4.87 10^6/uL Normal 4.0-5.4 Hemoglobin 14.5 g/dL Normal 12.0-16.0 Hematocrit 42 % Normal 35-47 Mean Corpuscular Volume 87 fL Normal 80-97 Mean Corpuscular Hemoglobin 30 pg Normal 27-31 Mean Corpuscular HGB Conc 34 g/dL Normal 31-36 Red Cell Distribution Width 13 % Normal 10.5-15 Platelet Count 301 10^3/uL Normal 150-450 Mean Platelet Volume 7 um3 Low 7.4-10.4 Abs Neutrophils 3.7 10^3/uL Normal 1.5-7.7 Abs Lymphocytes 3.2 10^3/uL Normal 1.0-4.8 Abs Monocytes 0.6 10^3/uL Normal 0-0.8 Abs Eosinophils 0.2 10^3/uL Normal 0-0.6 Abs Basophils 0.1 10^3/uL Normal 0-0.2 Abs Nucleated RBC 0.01 10^3/uL Normal Granulocyte % 47.3 % Normal 38-83 Lymphocyte % 41.3 % Normal 25-47 Monocyte % 7.1 % Normal 1-9 Eosinophil % 2.9 % Normal 0-6 Basophil % 1.4 % Normal 0-2 Nucleated Red Blood Cells % 0.1 Normal Laboratory test 02/21/2017 [facility] Erythrocyte Sed 11 mm/Hr Normal 0-[address] [place] [address] [phone] C Reactive Protein 2.39 mg/L Normal < 5.00 55 Laboratory test 02/21/2017 [facility] Hemoglobin A1c 7.0 5-7 finding Laboratory test 12/01/2016 [facility] Hemoglobin A1c 7.2 High 5-7 finding Urine Microalbumin 08/25/2016 [facility] Urine Creatinine 138.86 Normal Random [address] mg/[place] [address] [phone] Ur Microalbumin (mg/L) 17.9 mg/L Normal Urine Microalbumin/Creatinine 12.8 ug/mg Normal <31 Lipid Profile 08/24/2016 [facility] Triglycerides 286 Normal 56, 57 (Trig/Chol/HDL) [address] mg/[place] [address] [phone] Cholesterol 354 mg/dL Normal 58 HDL Cholesterol 48.1 mg/dL Normal 59 LDL Cholesterol 249 mg/dL Normal 60 Liver Function 08/24/2016 [facility] Total Protein 7.6 g/dL Normal 6.4-8.[address] [place] [address] [phone] Albumin 4.6 g/dL Normal 3.2-5.2 Globulin 3.0 g/dL Normal 2-4 Albumin/Globulin Ratio 1.5 Normal 1-3 Total Bilirubin 0.50 mg/dL Normal 0.2-1.0 Alkaline Phosphatase 70 U/L Normal 34-104 Alt 22 U/L Normal 7-52 Direct Bilirubin TNP mg/dL Normal 0.03-0.18 61 Ast TNP U/L Normal 13-39 62 Laboratory 08/24/2016 [facility] Hemoglobin A1c 7.7 % High Less 63 test finding [address] (Glyco HGB) than 6.0 [place] [address] [phone] Lipid Profile 10/26/2015 [facility] Triglycerides 152 Normal 64 (Trig/Chol/HDL [address] mg/dL ) [place] [address] [phone] Cholesterol 278 mg/dL Normal 65 HDL Cholesterol 45.2 mg/dL Normal 66 LDL Cholesterol 202 mg/dL Normal 67 Laboratory test 10/26/2015 [facility] Hemoglobin A1c 7.3 % High Less [address] (Glyco HGB) [place] [address] [phone] Laboratory test 07/22/2015 [facility] C Reactive 1.01 Normal < 5.00 [address] Protein mg/L [place], [place] [address] [phone] Urine 07/22/2015 [facility] Ur Microalbumin < 5.0 Normal Microalbumin [address] (mg/L) mg/[place] [address] [phone] Urine Creatinine 27.48 mg/dL Normal Urine Microalbumin/Creatinine TNP ug/mg Normal <31 70 Laboratory test 07/07/2015 [facility] Hemoglobin A1c 12.0 High 5-7 finding Comp Metabolic 07/06/2015 [facility] Sodium 136 mmol/L Normal 133-[address] [place] [address] [phone] Potassium 3.9 mmol/L Normal 3.5-5.0 Chloride 103 mmol/L Normal 101-111 Co2 Carbon Dioxide 27 mmol/L Normal 22-32 Anion Gap 6 mmol/L Normal 2-11 Glucose 278 mg/dL High 70-100 Blood Urea Nitrogen 10 mg/dL Normal 6-24 Creatinine 0.51 mg/dL Normal 0.51-0.95 BUN/Creatinine Ratio 19.6 Normal 8-20 Calcium 9.0 mg/dL Normal 8.6-10.3 Total Protein 6.5 g/dL Normal 6.4-8.9 Albumin 3.5 g/dL Normal 3.2-5.2 Globulin 3.0 g/dL Normal 2-4 Albumin/Globulin Ratio 1.2 Normal 1-3 Total Bilirubin 0.20 mg/dL Normal 0.2-1.0 Alkaline Phosphatase 88 U/L Normal 34-104 Alt 20 U/L Normal 7-52 Ast 14 U/L Normal 13-39 Egfr Non- 123.9 Normal >60 Egfr 159.3 Normal >60 71 Laboratory test 07/06/2015 [facility] C Reactive 4.05 mg/L Normal < 5.00 [address] [place] [address] [phone] CBC Auto Diff 07/06/2015 [facility] White Blood 9.4 Normal 3.5 -10.[address] Count 10^3/[place] [address] [phone] Red Blood Count 4.06 10^6/uL Normal 4.0-5.4 Hemoglobin 12.0 g/dL Normal 12.0-16.0 Hematocrit 35 % Normal 35-47 Mean Corpuscular Volume 87 fL Normal 80-97 Mean Corpuscular Hemoglobin 30 pg Normal 27-31 Mean Corpuscular HGB Conc 34 g/dL Normal 31-36 Red Cell Distribution Width 13 % Normal 10.5-15 Platelet Count 425 10^3/uL Normal 150-450 Mean Platelet Volume 8 um3 Normal 7.4-10.4 Abs Neutrophils 4.4 10^3/uL Normal 1.5-7.7 Abs Lymphocytes 4.1 10^3/uL Normal 1.0-4.8 Abs Monocytes 0.4 10^3/uL Normal 0-0.8 Abs Eosinophils 0.2 10^3/uL Normal 0-0.6 Abs Basophils 0.2 10^3/uL Normal 0-0.2 Abs Nucleated RBC 0.01 10^3/uL Normal Granulocyte % 47.4 % Normal 38-83 Lymphocyte % 44.3 % Normal 25-47 Monocyte % 4.7 % Normal 1-9 Eosinophil % 1.7 % Normal 0-6 Basophil % 1.9 % Normal 0-2 Nucleated Red Blood Cells % 0.1 Normal Laboratory test 06/22/2015 [facility] Point of Care 366 High 74-106 [address] Glucose mg/[place] [address] [phone] Laboratory test 08/15/2014 [facility] Hemoglobin A1c 12.0 High 5-7 finding Laboratory test 05/06/2014 [facility] Hemoglobin A1c 9.1 High 5-7 finding Urine 05/06/2014 [facility] Ur Microalbumin 17.0 Normal Microalbumin [address] (mg/L) mg/[place] [address] [phone] Urine Creatinine 114.44 mg/dL Normal Urine Microalbumin/Creatinine 14.8 Normal Less Than 31 Laboratory test 10/25/2013 [facility] Hemoglobin A1c 8.3 High 5-7 finding Laboratory test 10/24/2013 [facility] Hemoglobin A1c 8.8 % High Less than [address] 6[address]0 [place] [address] [phone] Hemoglobin 14.8 g/dL Normal 12.0-16.0 Lipid Panel 10/24/2013 [facility] Triglycerides 410 mg/dL Normal [address] [place] [address] [phone] Cholesterol 281 mg/dL Normal 76 HDL Cholesterol 38.8 mg/dL Normal 77 LDL Cholesterol (SEE NOTE) mg/dL Normal 78 Laboratory test 10/24/2013 [facility] Glucose 214 mg/dL High 70-[address] [place] [address] [phone] Laboratory test 06/07/2013 [facility] Hemoglobin A1c 8.1 % High Less than [address] 6[address] [place] [address] [phone] Hemoglobin 15.5 g/dL 12.0-16.0 80 Liver Function 06/07/2013 [facility] Total Protein 7.2 g/dL 6.2-8.[address] [place] [address] [phone] Albumin 4.5 g/dL 3.6-5.4 Globulin 2.7 g/dL 2-4 Albumin/Globulin Ratio 1.7 1-3 Total Bilirubin 0.9 mg/dL 0.4-1.5 Direct Bilirubin 0.1 mg/dL 0.1-0.5 Indirect Bilirubin 0.8 mg/dL 0.3-1.0 Alkaline Phosphatase 75 U/L 30-110 Alt 37 U/L 14-54 Ast 30 U/L 12-42 Lipid Profile 06/07/2013 [facility] Triglycerides 263 mg/dL High 40-200 (Trig/Chol/HDL) [address] [place] [address] [phone] Cholesterol 354 mg/dL High Less than 200 HDL Cholesterol 43 mg/dL 40-60 81 Cholesterol/HDL Ratio 8.2 Average High 1-4.44 LDL Cholesterol 258.4 High Less Than 100 82 Laboratory test 03/15/2013 [facility] Hemoglobin A1c 6.9 5-7 finding Laboratory test 12/07/2012 [facility] Hemoglobin A1c 6.9 % High Less than [address] [place] [address] [phone] Alkaline Phosphatase 66 U/L 30-110 Alt 28 U/L 14-54 Ast 24 U/L 12-42 Basic Metabolic Panel 12/07/2012 [facility] Sodium 141 mmol/L 133-[address] [place] [address] [phone] Potassium 4.4 mmol/L 3.5-5.0 Chloride 105 mmol/L 101-111 Co2 Carbon Dioxide 29.0 mmol/L 22-32 Anion Gap 7.0 mmol/L 2-11 Glucose 144 mg/dL High 70-100 Blood Urea Nitrogen 8 mg/dL 6-24 Creatinine 0.70 mg/dL 0.50-1.40 BUN/Creatinine Ratio 11.4 8-20 Calcium 9.7 mg/dL 8.1-9.9 Egfr Non- 86.6 >60 Egfr 111.3 >60 84 Lipid Profile 12/07/2012 [facility] Triglycerides 317 mg/dL High 40-200 (Trig/Chol/HDL) [address] [place] [address] [phone] Cholesterol 277 mg/dL High Less than 200 HDL Cholesterol 40 mg/dL 40-60 85 Cholesterol/HDL Ratio 6.9 Average High 1-4.44 LDL Cholesterol 173.6 High Less Than 100 86 Urine Microalbumin 12/07/2012 [facility] Ur Microalbumin 5.0 mg/ L [address] (mg/L) [place] [address] [phone] Urine Creatinine 105.8 mg/dL Urine Microalbumin/Creatinine 4.7 Less Than 31 Laboratory test 09/10/2012 [facility] Hemoglobin A1c 8.5 High 5-7 finding Laboratory test 01/02/2012 [facility] Hemoglobin A1c 8.2 % High Less Than [address] [place] [address] [phone] CBC Auto Diff 01/02/2012 [facility] White Blood 7.8 CUMM 4.8- 10.[address] [place] [address] [phone] Red Cell Count 5.32 CUMM 4.2-5.4 Hemoglobin 14.7 g/dL 12.0-16.0 Hematocrit 44 % 35-47 Mean Corpuscular Volume 83 um3 79-97 Mean Corpuscular Hemoglob 28 pg 27-31 Mean Corpuscular HGB Cone 33 g/dL 32-36 Redcell Distribution WDTH 14 % 10.5-15 Platelet Count 296 CUMM 150-450 Mean Platelet Volume 7.6 um3 7.4-10.4 Gran % 55.2 % 38-83 Lymph % 35.4 % 20-45 Mononuclear % 5.9 % 1-9 Eosinophil % 2.5 % 0-6 Basophil % 1.0 % 0-2 Abs Lymphs 2.8 1.0-4.8 Abs Mononuclear 0.5 0-0.8 Absolute Neutrophil Count 4.3 1.5-7.7 Abs Eosinophils 0.2 0-0.6 Abs Basophils 0.1 0-0.2 Lipid Profile 01/02/2012 [facility] Triglyceride 283 mg/dL High 40-200 (Trig/Chol/HDL) [address] [place] [address] [phone] Cholesterol 327 mg/dL High Less Than 200 89 High Density Lipoprotein 40 mg/dL 40-60 90 Cholesterol/HDL Ratio 8.18 AVERAGE High 1-4.44 Low Density Lipoprotein 230 mg/dL High Less Than 100 91 Comp Metabolic Panel 01/02/2012 [facility] Sodium 138 mmol/L 135-[address] [place] [address] [phone] Potassium 4.2 mmol/L 3.5-5.0 Chloride 104 mmol/L 101-111 Co2 (Carbon Dioxide) 26.0 mmol/L 22-32 Anion Gap 8.0 mmol/L 2-11 92 Glucose 212 mg/dL High 70-100 BUN 10 mg/dL 6-24 Creatinine 0.7 mg/dL 0.50-1.40 One Over Creatinine 1.42 BUN/Creatinine Ratio 14.3 8-20 Calcium 9.0 mg/dL 8.1-9.9 Total Protein 6.9 GM/DL 6.2-8.1 Albumin 4.3 GM/DL 3.6-5.4 Globulin 2.6 GM/DL 2-4 Albumin/Globulin Ratio 1.7 1-3 Bilirubin Total 0.9 mg/dL 0.4-1.5 93 Alkaline Phosphatase 69 U/L 30-110 Alt (SGPT) 17 U/L 14-54 Ast (Sgot) 21 U/L 12-42 eGFR Non- 86.9 > 60 eGFR 111.7 > 60 94 Lipid Panel - 01/02/2012 [facility] CPK (Creatine 115 U/L 0- [address] [employer]) [place] [address] [phone] Laboratory test 12/01/2011 [facility] Hemoglobin A1c 7.4 % High Less Than [address] 6[address] [place] [address] [phone] Urine 12/01/2011 [facility] Microalbumin 3.[address] (MG/L) mg/[place] [address] [phone] Urine Creatinine 27.4 mg/dL Tomas Alb/Creatinine Ratio 10.9 UG/MG Less Than 30 96 Protime 09/08/2011 [facility] Inr 0.95 0.88-1.[address] [place] [address] [phone] Protime 11.3 SEC 10.3-13.5 98 Laboratory test 09/08/2011 [facility] PTT (Aptt) 28.9 SEC 25.1-38.[address] [place] [address] [phone] CBC Auto Diff 09/08/2011 [facility] White Blood 11.7 CUMM High 4.8-10.[address] [place] [address] [phone] Red Cell Count 3.72 CUMM Low 4.2-5.4 Hemoglobin 11.3 g/dL Low 12.0-16.0 Hematocrit 32 % Low 35-47 Mean Corpuscular Volume 86 um3 79-97 Mean Corpuscular Hemoglob 30 pg 27-31 Mean Corpuscular HGB Cone 36 g/dL 32-36 Redcell Distribution WDTH 13 % 10.5-15 Platelet Count 312 CUMM 150-450 Mean Platelet Volume 6.9 um3 Low 7.4-10.4 Gran % 47.7 % 38-83 Lymph % 43.1 % 25-47 Mononuclear % 6.6 % 1-9 Eosinophil % 1.9 % 0-6 Basophil % 0.7 % 0-2 Abs Lymphs 5.1 High 1.0-4.8 Abs Mononuclear 0.8 0-0.8 Absolute Neutrophil Count 5.6 1.5-7.7 Abs Eosinophils 0.2 0-0.6 Abs Basophils 0.1 0-0.2 Laboratory test 08/05/2011 [facility] TSH 3.09 MIU/ML 0.34- 5.60 finding [address] [place] [address] [phone] Hemoglobin A1c 9.6 % High Less Than 6.0 99 Lipid Profile 08/05/2011 [facility] Triglyceride 390 mg/dL High 40-200 (Trig/Chol/HDL) [address] [place] [address] [phone] Cholesterol 348 mg/dL High Less Than 200 100 High Density Lipoprotein 44 mg/dL 40-60 101 Cholesterol/HDL Ratio 7.91 AVERAGE High 1-4.44 Low Density Lipoprotein 226 mg/dL High Less Than 100 102 Comp Metabolic Panel 08/05/2011 [facility] Sodium 137 mmol/L 135-145 [address] [place] [address] [phone] Potassium 3.9 mmol/L 3.5-5.0 Chloride 102 mmol/L 101-111 Co2 (Carbon Dioxide) 24.0 mmol/L 22-32 Anion Gap 11.0 mmol/L 2-11 103 Glucose 183 mg/dL High 70-100 BUN 8 mg/dL 6-24 Creatinine 0.7 mg/dL 0.50-1.40 One Over Creatinine 1.42 BUN/Creatinine Ratio 11.4 8-20 Calcium 9.5 mg/dL 8.1-9.9 Total Protein 7.5 GM/DL 6.2-8.1 Albumin 4.6 GM/DL 3.6-5.4 Globulin 2.9 GM/DL 2-4 Albumin/Globulin Ratio 1.6 1-3 Bilirubin Total 1.0 mg/dL 0.4-1.5 104 Alkaline Phosphatase 75 U/L 30-110 Alt (SGPT) 42 U/L 14-54 Ast (Sgot) 36 U/L 12-42 eGFR Non- 87.2 > 60 eGFR 112.1 > 60 105 Laboratory test 08/03/2011 [facility] PTT (Aptt) 26.6 SEC 25.1-38.5 finding [address] [place] [address] [phone] D Dimer Quantitative < 200 NG/ML Less Than 230 106 BNP Evaluatr 14.0 pg/mL 0-100 Magnesium 1.9 mg/dL 1.7-2.6 Lipase 29 U/L 22-51 Protime 08/03/2011 [facility] Inr 0.93 0.88-1.13 107 [address] [place] [address] [phone] Protime 11.0 SEC 10.3-13.5 108 Laboratory test 08/03/2011 [facility] Troponin-I 0 NG/ML 0- 0.06 109 finding [address] [place] [address] [phone] Comp Metabolic 08/03/2011 [facility] Sodium 133 mmol/L Low 135 -145 Panel [address] [place] [address] [phone] Potassium 3.6 mmol/L 3.5-5.0 Chloride 100 mmol/L Low 101-111 Co2 (Carbon Dioxide) 19.0 mmol/L Low 22-32 Anion Gap 14.0 mmol/L High 2-11 110 Glucose 360 mg/dL High 70-100 BUN 15 mg/dL 6-24 Creatinine 0.6 mg/dL 0.50-1.40 One Over Creatinine 1.66 BUN/Creatinine Ratio 25.0 High 8-20 Calcium 9.1 mg/dL 8.1-9.9 Total Protein 7.0 GM/DL 6.2-8.1 Albumin 4.2 GM/DL 3.6-5.4 Globulin 2.8 GM/DL 2-4 Albumin/Globulin Ratio 1.5 1-3 Bilirubin Total 0.8 mg/dL 0.4-1.5 111 Alkaline Phosphatase 74 U/L 30-110 Alt (SGPT) 43 U/L 14-54 Ast (Sgot) 39 U/L 12-42 eGFR Non- 104.2 > 60 eGFR 134.0 > 60 112 CBC Auto Diff 08/03/2011 [facility] White Blood 8.5 CUMM 4.8- 10.[address] [place] [address] [phone] Red Cell Count 4.87 CUMM 4.2-5.4 Hemoglobin 14.4 g/dL 12.0-16.0 Hematocrit 42 % 35-47 Mean Corpuscular Volume 85 um3 79-97 Mean Corpuscular Hemoglob 30 pg 27-31 Mean Corpuscular HGB Cone 35 g/dL 32-36 Redcell Distribution WDTH 13 % 10.5-15 Platelet Count 253 CUMM 150-450 Mean Platelet Volume 7.8 um3 7.4-10.4 Gran % 70.9 % 38-83 Lymph % 25.0 % 25-47 Mononuclear % 3.4 % 1-9 Eosinophil % 0.2 % 0-6 Basophil % 0.5 % 0-2 Abs Lymphs 2.1 1.0-4.8 Abs Mononuclear 0.3 0-0.8 Absolute Neutrophil Count 6.0 1.5-7.7 Abs Eosinophils 0 0-0.6 Abs Basophils 0 0-0.2 Laboratory test 03/26/2011 [facility] Hemoglobin A1c 10.0 % High Less [address] Than 6.0 [place] [address] [phone] Comp Metabolic 03/26/2011 [facility] Sodium 134 Low 135-[address] mmol/[place] [address] [phone] Potassium 4.1 mmol/L 3.5-5.0 Chloride 97 mmol/L Low 101-111 Co2 (Carbon Dioxide) 29.0 mmol/L 22-32 Anion Gap 8.0 mmol/L 2-11 114 Glucose 336 mg/dL High 70-100 BUN 15 mg/dL 6-24 Creatinine 0.6 mg/dL 0.50-1.40 One Over Creatinine 1.66 BUN/Creatinine Ratio 25.0 High 8-20 Calcium 9.7 mg/dL 8.1-9.9 Total Protein 7.1 GM/DL 6.2-8.1 Albumin 4.2 GM/DL 3.6-5.4 Globulin 2.9 GM/DL 2-4 Albumin/Globulin Ratio 1.4 1-3 Bilirubin Total 1.1 mg/dL 0.4-1.5 115 Alkaline Phosphatase 92 U/L 30-110 Alt (SGPT) 64 U/L High 14-54 Ast (Sgot) 30 U/L 12-42 eGFR Non- 104.2 > 60 eGFR 134.0 > 60 116 Lipid Profile 03/26/2011 [facility] Triglyceride 725 mg/dL High 40-200 (Trig/Chol/HDL) [address] [place] [address] [phone] Cholesterol 350 mg/dL High Less Than 200 117 High Density Lipoprotein 43 mg/dL 40-60 118 Cholesterol/HDL Ratio 8.14 AVERAGE High 1-4.44 Low Density Lipoprotein (SEE NOTE) mg/dL Less Than 100 119 Laboratory test 03/26/2011 [facility] TSH 1.71 MIU/ML 0.34- 5.60 finding [address] [place] [address] [phone] 1 REFERENCE VALUE Cutoff: 500 2 REFERENCE VALUE Cutoff: 200 3 REFERENCE VALUE Cutoff: 100 4 REFERENCE VALUE Cutoff: 150 5 ADDITIONAL INFORMATION This report is intended for use in clinical monitoring or management of patients. It is not intended for use in employment-related testing. 6 REFERENCE VALUE Cutoff: 200 mg/L 7 Tylenol 3 8 Metabolite of codeine REFERENCE VALUE Cutoff: 100 9 Armida Beltre, MS Contin; Also a minor metabolite (10%) of codeine and can be seen in low concentrations (<2,000 ng/mL) with poppy seed ingestion. 10 Metabolite of morphine REFERENCE VALUE Cutoff: 100 11 Metabolite of heroin 12 Lortab, [place], Vicodin; Also a very minor metabolite of codeine and impurity (<1%) of oxycodone. 13 Metabolite of hydrocodone 14 Metabolite of hydrocodone 15 Dilaudid, Exalgo; Also a metabolite of hydrocodone and a minor (<5%) metabolite of morphine. 16 Metabolite of hydromorphone REFERENCE VALUE Cutoff: 100 17 Endocet, Percocet, Oxycontin 18 Metabolite of oxycodone 19 Numorphan, Opana; Also a metabolite of oxycodone. 20 Metabolite of oxymorphone REFERENCE VALUE Cutoff: 100 21 Metabolite of oxymorphone 22 Actiq, Duragesic, Fentora 23 Metabolite of fentanyl 24 Demerol 25 Metabolite of meperidine 26 Narcan 27 Metabolite of naloxone REFERENCE VALUE Cutoff: 100 28 Dolophine 29 Metabolite of methadone 30 Darvon, Darvocet 31 Metabolite of propoxyphene 32 Tradol, Ultram, Ultracet 33 Metabolite of tramadol 34 Nucynta 35 Metabolite of tapentadol 36 Metabolite of tapentadol REFERENCE VALUE Cutoff: 100 37 Buprenex, Suboxone 38 Results not available due to analyte specific assay failure. Metabolite of buprenorphine 39 Metabolite of buprenorphine 40 No opioids were detected. The absence of expected drug(s) and/or drug metabolite(s) may indicate non-compliance, altered pharmacokinetics, inappropriate timing of specimen collection relative to drug administration, diluted/adulterated urine, or limitations of testing. ADDITIONAL INFORMATION This test was developed and its performance characteristics determined by [facility] in a manner consistent with CLIA requirements. This test has not been cleared or approved by the U.S. Food and Drug Administration. Test Performed by: [facility] [address] [place] [address] 41 Desirable: <150 Borderline High: 150-199 High: 200-499 Very High: >500 42 Desirable: <200 Borderline High: 200-239 High: >239 43 Low: <40 Desirable: 40-60 High: >60 44 Desirable: <100 Near Optimal: 100-129 Borderline High: 130-159 High: 160-189 Very High: >189 45 Because ethnic data is not always readily available, this report includes an eGFR for both -Americans and non- Americans. The National Kidney Disease Education Program (NKDEP) does not endorse the use of the MDRD equation for patients that are not between the ages of 18 and 70, are , have extremes of body size, muscle mass, or nutritional status, or are non- or non-. According to the National Kidney Foundation, irrespective of diagnosis, the stage of the disease is based on the level of kidney function: Stage Description GFR(mL/min/1.73 m(2)) 1 Kidney damage with normal or decreased GFR 90 2 Kidney damage with mild decrease in GFR 60-89 3 Moderate decrease in GFR 30-59 4 Severe decrease in GFR 15-29 5 Kidney failure <15 (or dialysis) 46 Therapeutic target for the treatment of diabetes mellitus patients is <7% HBA1C, and in selective patients <6.0%. Please refer to [place] [employer] diabetic care guidelines for further information. 47 Unable to calculate due to low microalbumin 48 Because ethnic data is not always readily available, this report includes an eGFR for both -Americans and non- Americans. The National Kidney Disease Education Program (NKDEP) does not endorse the use of the MDRD equation for patients that are not between the ages of 18 and 70, are , have extremes of body size, muscle mass, or nutritional status, or are non- or non-. According to the National Kidney Foundation, irrespective of diagnosis, the stage of the disease is based on the level of kidney function: Stage Description GFR(mL/min/1.73 m(2)) 1 Kidney damage with normal or decreased GFR 90 2 Kidney damage with mild decrease in GFR 60-89 3 Moderate decrease in GFR 30-59 4 Severe decrease in GFR 15-29 5 Kidney failure <15 (or dialysis) 49 Desirable: <150 Borderline High: 150-199 High: 200-499 Very High: >500 50 Desirable: <200 Borderline High: 200-239 High: >239 51 Low: <40 Desirable: 40-60 High: >60 52 Desirable: <100 Near Optimal: 100-129 Borderline High: 130-159 High: 160-189 Very High: >189 53 Because ethnic data is not always readily available, this report includes an eGFR for both -Americans and non- Americans. The National Kidney Disease Education Program (NKDEP) does not endorse the use of the MDRD equation for patients that are not between the ages of 18 and 70, are , have extremes of body size, muscle mass, or nutritional status, or are non- or non-. According to the National Kidney Foundation, irrespective of diagnosis, the stage of the disease is based on the level of kidney function: Stage Description GFR(mL/min/1.73 m(2)) 1 Kidney damage with normal or decreased GFR 90 2 Kidney damage with mild decrease in GFR 60-89 3 Moderate decrease in GFR 30-59 4 Severe decrease in GFR 15-29 5 Kidney failure <15 (or dialysis) 54 Normal Range 180 to 914 Indeterminate Range 145 to 180 Deficient Range <145 55 Acute inflammation: >10.00 56 PT IS FASTING 57 Desirable <150 Borderline high 150-199 High 200-499 Very High >500 58 Desirable <200 Borderline high 200-239 High >239 59 Low <40 Desirable: 40-60 High: >60 60 Desirable: <100 mg/dL Near Optimal: 100-129 mg/dL Borderline High: 130-159 mg/dL High: 160-189 mg/dL Very High: >189 mg/dL 61 Unable to report test result due to hemolysis. 62 Unable to report test result due to hemolysis. 63 Therapeutic target for the treatment of diabetes Mellitus patients is <7% HBA1C, and in selective patients <6.0%.Please refer to [place] [employer] Diabetic care guidelines for further information. 64 Desirable <150 Borderline high 150-199 High 200-499 Very High >500 65 Desirable <200 Borderline high 200-239 High >239 66 Low <40 Desirable: 40-60 High: >60 67 Desirable: <100 mg/dL Near Optimal: 100-129 mg/dL Borderline High: 130-159 mg/dL High: 160-189 mg/dL Very High: >189 mg/dL 68 Therapeutic target for the treatment of diabetes Mellitus patients is <7% HBA1C, and in selective patients <6.0%.Please refer to [place] [employer] Diabetic care guidelines for further information. 69 Acute inflammation: >10.00 70 Unable to calculate due to low microalbumin 71 Because ethnic data is not always readily available, this report includes an eGFR for both -Americans and non- Americans. The National Kidney Disease Education Program (NKDEP) does not endorse the use of the MDRD equation for patients that are not between the ages of 18 and 70, are , have extremes of body size, muscle mass, or nutritional status, or are non- or non-. According to the National Kidney Foundation, irrespective of diagnosis, the stage of the disease is based on the level of kidney function: Stage Description GFR(mL/min/1.73 m(2)) 1 Kidney damage with normal or decreased GFR 90 2 Kidney damage with mild decrease in GFR 60-89 3 Moderate decrease in GFR 30-59 4 Severe decrease in GFR 15-29 5 Kidney failure <15 (or dialysis) 72 Acute inflammation: >10.00 73 Hvac/R Service Technician: [id number] NNAMDI VALDES 74 Therapeutic target for the treatment of diabetes Mellitus patients is <7% HBA1C, and in selective patients <6.0%.Please refer to [place] [employer] Diabetic care guidelines for further information. 75 Desirable <150 Borderline high 150-199 High 200-499 Very High >500 76 Desirable <200 Borderline high 200-239 High >239 77 Low <40 Desirable: 40-60 High: >60 78 Unable to calculate LDL as triglyceride is > 400 79 Therapeutic target for the treatment of diabetes Mellitus patients is <7% HBA1C, and in selective patients <6.0%.Please refer to [place] [employer] Diabetic care guidelines for further information. 80 FASTING 12 HOUR Please do this as soon as possible 81 HDL Interpretation: Undesirable: High Risk: Less than 40 mg/dL Desirable: Low Risk: Greater than 60 mg/dL 82 LDL Interpretation: Low Risk Optimal Level: LDL Less than 100 mg/dL Near or Above Optimal: LDL 100-129 mg/dL Borderline High Risk: LDL 130-159 mg/dL High Risk: LDL 160-189 mg/dL Very High Risk: LDL Greater than 189 mg/dL 83 Therapeutic target for the treatment of diabetes Mellitus patients is <7% HBA1C, and in selective patients <6.0%.Please refer to [place] [employer] Diabetic care guidelines for further information. 84 Because ethnic data is not always readily available, this report includes an eGFR for both -Americans and non- Americans. The National Kidney Disease Education Program (NKDEP) does not endorse the use of the MDRD equation for patients that are not between the ages of 18 and 70, are , have extremes of body size, muscle mass, or nutritional status, or are non- or non-. According to the National Kidney Foundation, irrespective of diagnosis, the stage of the disease is based on the level of kidney function: Stage Description GFR(mL/min/1.73 m(2)) 1 Kidney damage with normal or decreased GFR 90 2 Kidney damage with mild decrease in GFR 60-89 3 Moderate decrease in GFR 30-59 4 Severe decrease in GFR 15-29 5 Kidney failure <15 (or dialysis) 85 HDL Interpretation: Undesirable: High Risk: Less than 40 mg/dL Desirable: Low Risk: Greater than 60 mg/dL 86 LDL Interpretation: Low Risk Optimal Level: LDL Less than 100 mg/dL Near or Above Optimal: LDL 100-129 mg/dL Borderline High Risk: LDL 130-159 mg/dL High Risk: LDL 160-189 mg/dL Very High Risk: LDL Greater than 189 mg/dL 87 Microalbuminuria in a random sample is defined as: Microalbumin/Creatinine ratio of 30-299 ug/mg. 88 THERAPEUTIC TARGET FOR THE TREATMENT OF DIABETES MELLITUS PATIENTS IS <7% HBA1C, AND IN SELECTIVE PATIENTS <6.0%. PLEASE REFER TO [employer] DIABETIC CARE GUIDELINES FOR FURTHER INFORMATION. 89 CHOLESTEROL INTERPRETATION: Desirable: Less than 200 MG/DL Borderline-High Risk: 200-239 MG/DL High-Risk: 240 MG/DL and over 90 HDL INTERPRETATION: Undesirable: High Risk: Less than 40 MG/DL Desirable: Low Risk: Greater than 60 MG/DL 91 LDL INTERPRETATION: Low Risk Optimal Level: LDL Less than 100 MG/DL Near or Above Optimal: LDL 100-129 MG/DL Borderline High Risk: LDL 130-159 MG/DL High Risk: LDL 160-189 MG/DL Very High Risk: LDL Greater than 189 MG/DL 92 Anion gap measurement may be of limited value in the presence of any alkalosis, especially in a combined acid base disorder. . 93 A metabolite of Naproxen, O-desmethylnaproxen, has been shown to interfere with the Jendrassik-Southgate method for measuring total bilirubin. Samples from patients who have taken Naproxen have shown spurious elevation in total bilirubin levels. 94 Because ethnic data is not always readily available, this report includes an eGFR for both -Americans and non- Americans. The National Kidney Disease Education Program (NKDEP) does not endorse the use of the MDRD equation for patients that are not between the ages of 18 and 70, are , have extremes of body size, muscle mass, or nutritional status, or are non- or non-. According to the National Kidney Foundation, irrespective of diagnosis, the stage of the disease is based on the level of kidney function: Stage Description GFR(mL/min/1.73 m(2)) 1 Kidney damage with normal or decreased GFR 90 2 Kidney damage with mild decrease in GFR 60-89 3 Moderate decrease in GFR 30-59 4 Severe decrease in GFR 15-29 5 Kidney failure <15 (or dialysis) 95 THERAPEUTIC TARGET FOR THE TREATMENT OF DIABETES MELLITUS PATIENTS IS <7% HBA1C, AND IN SELECTIVE PATIENTS <6.0%. PLEASE REFER TO [employer] DIABETIC CARE GUIDELINES FOR FURTHER INFORMATION. 96 MICROALBUMINURIA IN A RANDOM SAMPLE IS DEFINED : MICROALBUMIN/CREATININE RATIO OF 30-299 ug/mg. . 97 Recommended INR for Patients on Oral Anticoagulants Prophylaxis 2.0 - 3.0 Treatment of thrombosis 2.0 - 3.0 Prevention of embolism 2.0 - 3.0 Prevention of embolism from prosthetic heart valves 2.5 - 3.5 98 DIAGNOSIS,TREATMENT,AND THERAPY MUST BE BASED ON THE INR VALUE ALONE. 99 THERAPEUTIC TARGET FOR THE TREATMENT OF DIABETES MELLITUS PATIENTS IS <7% HBA1C, AND IN SELECTIVE PATIENTS <6.0%. PLEASE REFER TO [employer] DIABETIC CARE GUIDELINES FOR FURTHER INFORMATION. 100 CHOLESTEROL INTERPRETATION: Desirable: Less than 200 MG/DL Borderline-High Risk: 200-239 MG/DL High-Risk: 240 MG/DL and over 101 HDL INTERPRETATION: Undesirable: High Risk: Less than 40 MG/DL Desirable: Low Risk: Greater than 60 MG/DL 102 LDL INTERPRETATION: Low Risk Optimal Level: LDL Less than 100 MG/DL Near or Above Optimal: LDL 100-129 MG/DL Borderline High Risk: LDL 130-159 MG/DL High Risk: LDL 160-189 MG/DL Very High Risk: LDL Greater than 189 MG/DL 103 Anion gap measurement may be of limited value in the presence of any alkalosis, especially in a combined acid base disorder. . 104 A metabolite of Naproxen, O-desmethylnaproxen, has been shown to interfere with the Jendrassik-Southgate method for measuring total bilirubin. Samples from patients who have taken Naproxen have shown spurious elevation in total bilirubin levels. 105 Because ethnic data is not always readily available, this report includes an eGFR for both -Americans and non- Americans. The National Kidney Disease Education Program (NKDEP) does not endorse the use of the MDRD equation for patients that are not between the ages of 18 and 70, are , have extremes of body size, muscle mass, or nutritional status, or are non- or non-. According to the National Kidney Foundation, irrespective of diagnosis, the stage of the disease is based on the level of kidney function: Stage Description GFR(mL/min/1.73 m(2)) 1 Kidney damage with normal or decreased GFR 90 2 Kidney damage with mild decrease in GFR 60-89 3 Moderate decrease in GFR 30-59 4 Severe decrease in GFR 15-29 5 Kidney failure <15 (or dialysis) 106 Please note: The following may produce a false positive D Dimer test: - Rheumatoid factor greater than 1400 IU/ml - Plasma hemoglobin greater than 0.5 gm/dl - Bilirubin greater than 18 mg/dl - Triglycerides greater than 1327 mg/dl - FDP greater than 10 ug/ml . 107 Recommended INR for Patients on Oral Anticoagulants Prophylaxis 2.0 - 3.0 Treatment of thrombosis 2.0 - 3.0 Prevention of embolism 2.0 - 3.0 Prevention of embolism from prosthetic heart valves 2.5 - 3.5 108 DIAGNOSIS,TREATMENT,AND THERAPY MUST BE BASED ON THE INR VALUE ALONE. 109 New Reference Range and Interpretation effective 02/15/2002 TnI (ng/ml) INTERPRETATION Less Than 0.06 ng/mL NOT SUPPORTIVE OF DIAGNOSIS OF [place] 0.06 - 0.50 ng/ml INDETERMINATE: SUGGEST SERIAL STUDIES IF CLINICALLY INDICATED. Greater than 0.5 ng/mL CONSISTENT WITH DIAGNOSIS OF [place] . 110 Anion gap measurement may be of limited value in the presence of any alkalosis, especially in a combined acid base disorder. . 111 A metabolite of Naproxen, O-desmethylnaproxen, has been shown to interfere with the Jendrassik-Mendez method for measuring total bilirubin. Samples from patients who have taken Naproxen have shown spurious elevation in total bilirubin levels. 112 Because ethnic data is not always readily available, this report includes an eGFR for both -Americans and non- Americans. The National Kidney Disease Education Program (NKDEP) does not endorse the use of the MDRD equation for patients that are not between the ages of 18 and 70, are , have extremes of body size, muscle mass, or nutritional status, or are non- or non-. According to the National Kidney Foundation, irrespective of diagnosis, the stage of the disease is based on the level of kidney function: Stage Description GFR(mL/min/1.73 m(2)) 1 Kidney damage with normal or decreased GFR 90 2 Kidney damage with mild decrease in GFR 60-89 3 Moderate decrease in GFR 30-59 4 Severe decrease in GFR 15-29 5 Kidney failure <15 (or dialysis) 113 THERAPEUTIC TARGET FOR THE TREATMENT OF DIABETES MELLITUS PATIENTS IS <7% HBA1C, AND IN SELECTIVE PATIENTS <6.0%. PLEASE REFER TO [employer] DIABETIC CARE GUIDELINES FOR FURTHER INFORMATION. 114 Anion gap measurement may be of limited value in the presence of any alkalosis, especially in a combined acid base disorder. . 115 A metabolite of Naproxen, O-desmethylnaproxen, has been shown to interfere with the Jendrassik-Southgate method for measuring total bilirubin. Samples from patients who have taken Naproxen have shown spurious elevation in total bilirubin levels. 116 Because ethnic data is not always readily available, this report includes an eGFR for both -Americans and non- Americans. The National Kidney Disease Education Program (NKDEP) does not endorse the use of the MDRD equation for patients that are not between the ages of 18 and 70, are , have extremes of body size, muscle mass, or nutritional status, or are non- or non-. According to the National Kidney Foundation, irrespective of diagnosis, the stage of the disease is based on the level of kidney function: Stage Description GFR(mL/min/1.73 m(2)) 1 Kidney damage with normal or decreased GFR 90 2 Kidney damage with mild decrease in GFR 60-89 3 Moderate decrease in GFR 30-59 4 Severe decrease in GFR 15-29 5 Kidney failure <15 (or dialysis) 117 CHOLESTEROL INTERPRETATION: Desirable: Less than 200 MG/DL Borderline-High Risk: 200-239 MG/DL High-Risk: 240 MG/DL and over 118 HDL INTERPRETATION: Undesirable: High Risk: Less than 40 MG/DL Desirable: Low Risk: Greater than 60 MG/DL 119 UNABLE TO CALCULATE LDL TRIGLYCERIDE IS > 400 Procedures Date Code Description Status 10/26/2017 24209 Inject/Drain Joint/Bursa Major W/O US Completed 09/08/2017 [id number] Holter Monitor Review (24 hr)dr review & interp only Completed 09/06/2017 22006 ECG Monitor/Recording W/Visual Superimposition Completed Scanning 09/05/2017 [id number] Mammogram Completed 08/24/2017 [id number] EKG Tracing & Interpretation Completed 06/01/2017 [id number] Inject/Drain Joint/Bursa Major W/O US Completed 03/03/201741654 Inject/Drain Joint/Bursa Major W/O US Completed 12/31/2014 [id number] Diabetic Retinal Eye Exam Completed 01/21/2013 [id number] Diabetic Retinal Eye Exam Completed 04/12/2011 [id number] Mammogram Completed 01/13/2009 [id number] Colonoscopy Completed 12/21/2007 [id number] Mammogram Completed 08/01/2006 [id number] Bone Mineral Density Test Completed Encounters Type Date Location Provider Dx Diagnosis Office Visit 09/28/2018 [facility] Gustabo Medina, OPTICAL WORKER E11.9 Type 2 diabetes 8:40a Medicine - [facility] mellitus without complications I10 Essential (primary) hypertension E78.00 Pure hypercholesterolemia, unspecified L20.9 Atopic dermatitis, unspecified H93.11 Tinnitus, right ear F32.89 Other specified depressive episodes Office Visit 01/02/2018 8:15a Orthopedic Tayo Persaud M75.32 [facility] Of tendinitis of C.M.A. left shoulder M75.02 Adhesive capsulitis of left shoulder Office Visit 10/26/2017 8:00a Orthopedic Tayo Persaud M75.32 [facility] Of tendinitis of C.M.A. left shoulder M75.02 Adhesive capsulitis of left shoulder Office Visit 09/11/2017 3:20p [facility] Josiane R59.0 Localized enlarged Medicine - Kacy Casanova lymph nodes [facility] Office Visit 08/25/2017 10:20a [facility] Prabha Baires, E11.9 Type 2 diabetes Medicine - N.P. 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 left shoulder M75.02 Adhesive capsulitis of left shoulder Office Visit 06/01/2017 8:00a Orthopedic Tayo Persaud M75.32 [facility] Of MD tendinitis of C.M.A. left shoulder M75.02 Adhesive capsulitis of left shoulder Office Visit 05/25/2017 9:20a [facility] Gustabo Medina, E11.9 Type 2 diabetes Medicine - [facility] OPTICAL WORKER mellitus without complications J01.90 Acute sinusitis, unspecified Office Visit 04/21/2017 8:40a Sarah Medina M25.512 Pain in left Medicine - [facility] OPTICAL WORKER shoulder M25.532 Pain in left wrist Office Visit 04/20/2017 8:15a Mar Persaud M75.32 Calcific Services Of tendinitis of C.M.A. left shoulder M75.02 Adhesive capsulitis of left shoulder Office Visit 03/21/2017 8:40a Sarah Baires M25.512 Pain in left Medicine - [facility] N.P. 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 mellitus without [facility] complications R21 Rash and other nonspecific skin eruption E78.00 Pure hypercholesterolemia, unspecified Office Visit 01/31/2017 10:20a Sarah Baires M25.512 Pain in left Medicine - [facility] N.P. shoulder M25.532 Pain in left wrist M25.562 Pain in left knee Office Visit 12/26/2016 DoNotUse [facility] Hakeem Martin M79.632 Pain in left 9:00a Pawel Crooks M.D. forearm W19.xxxA Unspecified fall, initial encounter Office 12/06/2016 [facility]resh[facility]orge [facility] Hakeem Martin M25.539 Pain in Visit 11:20a Pawel Crooks M.D. unspecified wrist M25.562 Pain in left knee M25.512 Pain in left shoulder M25.511 Pain in right shoulder W19.xxxA Unspecified fall, initial encounter Office Visit 08/25/2016 1:20p [facility] Gustabo Medina, E11.9 Type 2 diabetes Medicine - [facility] OPTICAL WORKER mellitus without complications I10 Essential (primary) hypertension E78.00 Pure hypercholesterolemia, unspecified M54.2 Cervicalgia Office Visit 03/30/2016 10:40a [facility] Gustabo Medina OPTICAL WORKER B02.9 Zoster without Medicine - complications [facility] Office Visit 11/03/2015 8:40a [facility] Prabha Baires, E11.9 Type 2 diabetes Medicine - N.P. mellitus without [facility] complications I10 Essential (primary) hypertension E78.0 Pure hypercholesterolemia Office Visit 07/22/2015 11:40a [facility] Prabha Baires, E11.9 Type 2 diabetes Medicine - N.P. 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 mellitus without [facility] complications M79.604 Pain in right leg Office Visit 07/08/2015 1:20p [facility] Pam Diaz G00.9 Bacterial Infectious Kacy Cuevas meningitis, Diseases unspecified H70.092 Acute mastoiditis with other complications, left ear Office Visit 07/07/2015 9:20a [facility] Prabha Baires, E11.9 Type 2 diabetes Medicine - N.P. mellitus without [facility] complications H70.092 Acute mastoiditis with other complications, left ear Office Visit 06/22/2015 10:24a [facility] George Diaz G00.9 Bacterial Infectious Kacy Cuevas meningitis, Diseases unspecified E11.9 Type 2 diabetes mellitus without complications H60.62 Unspecified chronic otitis externa, left ear Office Visit 06/22/2015 [facility] Bowen H70.92 Unspecified 3:02p Assoc,miguelangel Tavera NRonaldP. mastoiditis, left Hospitalists ear G03.9 Meningitis, unspecified G93.49 Other encephalopathy A40.9 Streptococcal sepsis, unspecified Office Visit 06/22/2015 [facility] Robson Cary H70.92 Unspecified 2:58p Assoc,miguelangel Munoz D.O. mastoiditis, left Hospitalists ear A40.3 Sepsis due to Streptococcus pneumoniae G03.9 Meningitis, unspecified G93.49 Other encephalopathy Office Visit 09/08/2014 3:20p [facility] Graciela Francis3.1 Cervicalgia Medicine - [facility] N.P. 728.85 Spasm Muscle Office Visit 09/01/2014 9:30a Neurosurgery Alex Bui, 721.0 Spondylosis Services Of Sarah Woodruff Cervical W/O Myelopathy Office Visit 08/29/2014 9:00a Sarah Baires 723.1 Cervicalgia Medicine - [facility] N.P. 250.02 Diabetes Mellitus W/O Compl Type II Or Unspec Type Uncontrol 728.85 Spasm Muscle Office Visit 08/15/2014 8:40a Graciela Ferguson3.1 Cervicalgia Medicine - [facility] N.P. 728.85 Spasm Muscle 250.02 Diabetes Mellitus W/O Compl Type II Or Unspec Type Uncontrol Office Visit 08/11/2014 1:45p Neurosurgery Alex Bui 721.0 Spondylosis Services Of Sarah Woodruff Cervical W/O Myelopathy Office Visit 08/01/2014 9:00a Sarah Baires 723.1 Cervicalgia Medicine - [facility] N.P. 728.85 Spasm Muscle 250.02 Diabetes Mellitus W/O Compl Type II Or Unspec Type Uncontrol Office Visit 07/18/2014 9:20a Sarah Waltersn, 723.1 [facility] 311 Depressive Disorder Not Elsewhere Spec 728.85 Spasm Muscle Office Visit 07/04/2014 9:00a [facility] Prabha Baires, 723.1 [facility] 728.85 Spasm Muscle 250.02 Diabetes Mellitus W/O Compl Type II Or Unspec Type Uncontrol Office Visit 06/20/2014 10:00a [facility] Prabha Baires, 300.00 Anxiety State [facility] Unspec 723.1 Cervicalgia 728.85 Spasm Muscle 250.00 Diabetes Mellitus W/O Compl Type II Or Unspec Controlled 401.9 Hypertension Unspec Office Visit 06/06/2014 3:00p [facility] Prabha Baires, 728.85 Spasm Muscle [facility] 339.10 Tension Type Headache, Unspecified 723.1 Cervicalgia Office Visit 05/06/2014 1:20p [facility] Prabha Baires, 250.02 Diabetes [facility] Mellitus W/O Compl Type II Or Unspec Type Uncontrol 300.00 Anxiety State Unspec 401.9 Hypertension Unspec Office Visit 04/18/2014 11:00a [facility] Bong Mejias, 300.00 Anxiety State [facility] WORK[facility] Unspec 250.00 Diabetes Mellitus W/O Compl Type II Or Unspec Controlled 401.9 Hypertension Unspec 401.1 Hypertension Benign Office Visit 03/19/2014 10:00a [facility] Bong Mejias, 300.00 Anxiety State [facility] Unspec 728.85 Spasm Muscle Office Visit 02/18/2014 4:00p [facility] Hakeem Martin 250.00 Diabetes Mellitus [facility] W/O Compl Type II Or Unspec Controlled Office Visit 02/11/2014 2:20p [facility] Hakeem Martin 250.00 Diabetes Mellitus [facility] W/O Compl Type II Or Unspec Controlled 272.4 Hyperlipidemia Other Unspec v03.82 Streptococcus Pneumoniae Vaccination Spec Other V05.8 Single Disease Spec Other Vaccination & Inoculation Office Visit 11/28/2013 11:20a [facility] Hakeem Martin 461.9 Sinusitis Acute Medicine [facility] Unspec Office Visit 10/25/2013 8:40a [facility] Vivian Fitzgerald, 250.00 Diabetes Mellitus Medicine - [facility] M.D. W/O Compl Type II Or Unspec Controlled 272.4 Hyperlipidemia Other Unspec 300.00 Anxiety State Unspec Office Visit 08/21/2013 10:00a [facility] Hakeem Martin 465.9 URI Upper Germaine Crooks M.D. Respiratory [facility] Infections Acute Unspec Sites Office Visit 07/24/2013 11:40a [facility] Vivian Lia, 250.00 Diabetes Mellitus Medicine - M.D. W/O Compl Type II [facility] Or Unspec Controlled 272.4 Hyperlipidemia Other Unspec 380.22 Otitis Externa Other Acute Office Visit 06/17/2013 9:00a [facility] Vivian Lia, 272.4 Hyperlipidemia Other Medicine - M.D. Unspec [facility] 250.00 Diabetes Mellitus W/O Compl Type II Or Unspec Controlled 401.9 Hypertension Unspec V70.0 Examination General Medical Routine AT Health Care Facility V76.10 Screening For Malignant Neoplasm Breast Office Visit 03/15/2013 10:20a [facility] Vivian Fitzgerald, 250.00 Diabetes Mellitus Medicine - [facility] M.D. W/O Compl Type II Or Unspec Controlled 272.4 Hyperlipidemia Other Unspec 401.9 Hypertension Unspec Office Visit 12/12/2012 9:00a [facility] Vivian Fitzgerald, 250.00 Diabetes Mellitus Medicine - [facility] M.D. W/O Compl Type II Or Unspec Controlled 272.4 Hyperlipidemia Other Unspec Office Visit 09/10/2012 9:40a [facility] Vivian Fitzgerald, 401.9 Hypertension Unspec Medicine - M.D. [facility] 300.00 Anxiety State Unspec 250.00 Diabetes Mellitus W/O Compl Type II Or Unspec Controlled 272.4 Hyperlipidemia Other Unspec Office Visit 12/23/2011 11:20a [facility] Vivian Fitzgerald, 250.00 Diabetes Mellitus Medicine - [facility] M.D. W/O Compl Type II Or Unspec Controlled 272.4 Hyperlipidemia Other Unspec 401.9 Hypertension Unspec 300.00 Anxiety State Unspec Office Visit 12/05/2011 9:40a [facility] Prabha Viry, 380.22 Otitis Externa Medicine - N.P. Other Acute [facility] Office Visit 10/07/2011 11:40a [facility] Vivian Lia, 401.9 Hypertension Medicine - M.D. Unspec [facility] 272.4 Hyperlipidemia Other Unspec 300.00 Anxiety State Unspec 250.00 Diabetes Mellitus W/O Compl Type II Or Unspec Controlled Office Visit 09/05/2011 10:15a ENT Services Of Ravindra 784.7 Epistaxis C.M.A. AT [facility] Office Visit 08/24/2011 3:00p [facility] Vivian Fitzgerald M.D. 250.00 Diabetes Medicine - Mellitus W/O [facility] Compl Type II Or Unspec Controlled 401.9 Hypertension Unspec 272.4 Hyperlipidemia Other Unspec Office Visit 08/19/2011 10:40a [facility] Vivian Fitzgerald, 250.00 Diabetes Mellitus Medicine - [facility] Kacy W/O Compl Type II Or Unspec Controlled 272.4 Hyperlipidemia Other Unspec 401.9 Hypertension Unspec 300.00 Anxiety State Unspec Office Visit 08/05/2011 11:20a [facility] Prabha Varn, 300.00 Anxiety State Medicine - [facility] N.P. Unspec 786.59 Pain Chest Other 250.00 Diabetes Mellitus W/O Compl Type II Or Unspec Controlled Office Visit 07/19/2011 9:40a [facility] Prabha Viry, 380.22 Otitis Externa Medicine - [facility] N.P. Other Acute 461.9 Sinusitis Acute Unspec Office Visit 03/30/2011 DO Not Use Prabha Varn, V70.0 Examination 9:00a [facility] N.P. General Medical Routine AT Health Care Facility V76.10 Screening For Malignant Neoplasm Breast 272.4 Hyperlipidemia Other Unspec 250.00 Diabetes Mellitus W/O Compl Type II Or Unspec Controlled Office Visit 03/09/2011 1:00p DO Not Use Prabha Varn, 461.9 Sinusitis Acute [facility] N.P. Unspec Office Visit 02/11/2011 11:00a DO Not Use Vivian Fitzgerald, E885.9 Fall From Other Aguilar Woodruff Slipping,Trippi ng, Or Stumbling 724.5 Backache Unspec Office Visit 01/05/2011 4:00p DO Not Use Prabha Varn, 380.10 Otitis Externa [facility] N.P. Infective Unspec Office Visit 12/01/2010 9:00a DO Not Use Prabha Varn, 300.00 Anxiety State [facility] N.P. Unspec 916.4 Injury Superficial Insect Bite Hip Thigh Leg Ankle NV No Inf Office Visit 11/01/2010 10:40a DO Not Use Prabha Varn, 300.00 Anxiety State [facility] N.P. Unspec Office Visit 09/23/2010 10:20a DO Not Use Prabha Varn, 477.9 Rhinitis [facility]n [facility] N.P. Allergic Cause Unspec 372.30 Conjunctivitis Unspec Office Visit 06/01/2010 2:45p DO Not Use Spring Mindy, 465.9 URI Upper Aguilar Woodruff, FACP Respiratory Infections Acute Unspec Sites Office Visit 09/14/2009 10:45a DO Not Use Spring Mindy, 724.2 Lumbago Aguilar Woodruff, FACP 728.85 Spasm Muscle Office Visit 08/27/2009 DO Not Use Prabha Varn, 250.00 Diabetes 8:30a [facility] N.P. Mellitus W/O Compl Type II Or Unspec Controlled 272.4 Hyperlipidemia Other Unspec Office Visit 08/11/2009 DO Not Use Radtessieki, 729.82 Cramp Of Limb 4:15p Aguilar Crouch M.D. Office Visit 07/14/2009 DO Not Use Spring Mindy, 461.9 Sinusitis Acute 11:15a Aguilar Woodruff, FACP Unspec Office Visit 11/10/2008 DO Not Use Spring Mindy, 562.11 Diverticulitis 8:45a Aguilar Woodruff, FACP Colon W/O Hemorrhage 574.20 Calculus Gallbladder W/O Cholecystitis W/O Obstruction Office Visit 11/06/2008 DO Not Use Prabha 789.07 Pain Abdominal 10:30a [facility] Varn, N.P. Generalized Office Visit 11/13/2006 DO Not Use Prabha 272.4 Hyperlipidemia 9:00a [facility] Varn, N.P. Other Unspec 311 Depressive Disorder Not Elsewhere Spec Office 08/14/2006 DO Not Use Prabha 272.0 Hypercholesterolemia Visit 8:30a [facility] Varn, N.P. 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 Office 06/16/2006 DO Not Use Prabha 461.9 Sinusitis Acute Unspec Visit 2:45p [facility] Baires, NRonaldP. Plan of Treatment Future Appointment(s):12/31/2018 8:40 am - Gustabo Medina NP at [facility] Internal Medicine - [facility]08/10/2018 - Prabha Baires N.Richar.Z63.4 Disappearance and of family memberComments:To help you get through this difficult time I urge you to restart Paroxetine, I have sent in a new prescription for you. I urge you to continue to pursue senior counsel.ing. I have referred you to Milady Chaney.Referral: Milady Chaney, AUTO CLOCKS REPAIRER, Social GcwwaaD40.9 Type 2 diabetes mellitus without complicationsComments:For your diabetes: I have refilled your prescriptions. Please get started on these again.I10 Essential (primary) hypertensionComments: For your high blood pressure: Continue with your current medication. I would like you to monitor your blood pressure at home. If your readings at home are consistently higher than 140/90, please call the office.
--- OUTSIDE RECORDS SUMMARY | 2019-01-11 10:59 | XMS REPORT | Continuity of Care Document ---
:1955 External Reference #:[id number] Author Name Gustabo Medina NP (transmitted by agent of provider Marjorie Zamora) Address [address] [facility] [place] [place] [address] Care Team Providers Name Role Phone Herb Hein MD - Care Team Information Automobile Relocation Engineer [phone] Ophthalmology Epi Schwartz MD - Otolaryngology Care Team Information Automobile Relocation Engineer Hakeem Crooks III, MD - Internal Care Team Information Automobile Relocation Engineer Medicine Kamilla Hoff, PHD - Clinical Care Team Information Automobile Relocation Engineer [phone] Problems Active Problems Provider Date Type 2 diabetes mellitus Prabha Baires, N.P. Onset: 11/01/2010 Hyperlipidemia Prabha Viry, N.P. Onset: 11/01/2010 Diverticulitis of colon Prabha Baires, N.P. Onset: 11/01/2010 Essential hypertension Vivian Fitzgerald M.D. Onset: 10/07/2011 Cervical spondylosis without myelopathy Alex Bui M.D. Onset: 08/11/2014 Adhesive capsulitis of shoulder Tayo Persaud MD Onset: 04/20/2017 Calcific tendinitis of left shoulder Tayo Persaud MD Onset: 04/20/2017 Social History Type Date Description Comments Sex Unknown ETOH Use Occasionally consumes alcohol Tobacco Use Start: Unknown Patient has never smoked Recreational Drug Use Denies Drug Use Smoking Status Reviewed: 12/31/18 Patient has never smoked Exercise Type/Frequency Exercises [...] take 1 tablet by 90tabs E11.9 Prabha Baires, 05/25/2017 45mg mouth every day N.P. Tablets Carisoprodol take 1 by mouth 20tabs M75.02 Tayo Persaud, 03/03/2017 250mg three times a day Tablets Lidocaine Viscous swish and gargle 5 100ml Prabha Varn, 03/08/2016 2% ml every 3- 4 N.P. Solution hours as needed Glucometer Use to check blood 1un Prabha Baires, 07/03/2015 sugars daily N.P. Test Strips To test glucose 120un Prabha Baires, 07/03/2015 levels: fasting and N.P. 2 hours after meals Lancets To use for glucose 120un Prabha Baires, 07/03/2015 testing 4 times N.P. daily Glipizide take 2 tablets by 360tabs E11.9 Prabha Baires, 08/29/2014 10mg mouth in the N.P. Tablets morning and 2 tablets by mouth at night Naproxen 1 tablet twice a 60tabs M54.2 Prabha Baires, 07/04/2014 500mg day as needed N.P. Tablets Advil 3 qd as needed Hakeem Martin 11/28/2013 200mg Tablets Kacy Crooks Asorbine apply to back and Vivianwili Fitzgerald, 07/24/2013 4% Menthol calves as needed Kacy Black Cohosh Extract Vivian Trotterell, 10/07/2011 M.DRonald 80mg Capsules Benadryl 1 by mouth every [...] Unknown By Pharmacist For 0.5ml Raquel Immunization [place] Muscle Unknown Rub Cream Vitamin A Unknown 8000Unit Capsules Magnesium 1-2 by mouth every Unknown 300mg day Capsules History Medications Ezetimibe 1 by mouth 30tabs E78.00 Gustabo Medina NP 09/28/2018 - 10mg Tablets every day 12/17/2018 Triamcinolone Acetonide apply thin film 80gm L20.9 Gustabo Medina NP 2018 - twice daily 09/28/2018 0.1% Cream Medications Administered in Office Medication SIG Qnty Indications Ordering Provider Date Triamcinolone (Kenalog) Loulou Luevano PA-C 06/01/2017 Injection Triamcinolone (Kenalog) Loulou Luevano PA-C 03/03/2017 Injection Influenza Virus Vaccine Unknown 01/30/2014 Injection Immunizations CPT Code Status Date Vaccine Lot # [id number] Given 02/21/2016 Flu Vaccine NOS [id number] Given 04/18/2015 Influenza Virus Vaccine, Quadrivalent, Split, Preservative Free [id number] Given 10/27/2014 Tdap - Tetanus/Diptheria/Acellular Pertussis [id number] Given 02/11/2014 Zoster (Zostavax) [id number] Given 02/11/2014 Pneumonia Vaccine [id number] Given 02/23/2012 Afluria Vaccine Vital Signs Date Vital Result Comment 12/31/2018 8:31am Height 65 inches 5'5" Weight 156.50 lb Heart Rate 78 /min BP Systolic 137 mmHg BP Diastolic 76 mmHg Body Temperature 97.8 F O2 % BldC Oximetry 98 % BMI (Body Mass Index) 26.0 kg/m2 12/18/2018 3:48pm Height 65 inches 5'5" Weight 164.00 lb Heart Rate 75 /min BP Systolic 154 mmHg BP Diastolic 85 mmHg Body Temperature 97.7 F O2 % BldC Oximetry 97 % BMI (Body Mass Index) 27.3 kg/m2 Results Test Date Facility Test Result H/L Range Note Laboratory test 12/31/2018 [facility] Hemoglobin A1c 6.8 5-7 finding Drug Abuse 20 10/11/2018 [facility] Urine Amphetamine Negative [address] ng/[place] [address] [phone] Urine Barbiturates Negative ng/mL 2 Urine Benzodiazepines Negative ng/mL 3 Urine Cocaine Negative ng/mL 4 Urine Phencyclidine Negative ng/mL Cutoff: 25 Urine Tetrahydrocannabinol Negative ng/mL Cutoff: 50 5 Creatinine, Urine 90.5 mg/dL Specific Caret 1.011 pH 6.3 Oxidants Negative 6 Adulterants Comment Normal Codeine, Ur Not Detected ng/mL Cutoff: 25 7 Larawwk-3-vijj-glucuronide, Ur Not Detected ng/mL 8 Morphine, Ur Not Detected ng/mL Cutoff: 25 9 Tgzvcnmp-9-trod-glucuronide, U Not Detected ng/mL 10 6-monoacetylmorphine, Ur Not Detected ng/mL Cutoff: 25 11 Hydrocodone, Ur Not Detected ng/mL Cutoff: 25 12 Norhydrocodone, Ur Not Detected ng/mL Cutoff: 25 13 Dihydrocodeine, Ur Not Detected ng/mL Cutoff: 25 14 Hydromorphone, Ur Not Detected ng/mL Cutoff: 25 15 Kuvgxznaausla4vdvijipvcabhxrv Not Detected ng/mL 16 Oxycodone, Ur Not Detected ng/mL Cutoff: 25 17 Noroxycodone, Ur Not Detected ng/mL Cutoff: 25 18 Oxymorphone, Ur Not Detected ng/mL Cutoff: 25 19 Jiahmgjqzmx-8-jvaj-glucuronide Not Detected ng/mL 20 Noroxymorphone, Ur Not Detected ng/mL Cutoff: 25 21 Fentanyl, Ur Not Detected ng/mL Cutoff: 2 22 Norfentanyl, Ur Not Detected ng/mL Cutoff: 2 23 Meperidine, Ur Not Detected ng/mL Cutoff: 25 24 Normeperidine, Ur Not Detected ng/mL Cutoff: 25 25 Naloxone, Ur Not Detected ng/mL Cutoff: 25 26 Usulvohp-1-bduk-glucuronide, U Not Detected ng/mL 27 Methadone, Ur [...] Ur Not Detected ng/mL Cutoff: 50 35 Xcdloryswj-bmzu-iubdinvtfts, U Not Detected ng/mL 36 Buprenorphine, Ur Not Detected ng/mL Cutoff: 5 37 Norbuprenorphine, Ur See Comment ng/mL Cutoff: 5 38 Norbuprenorphine glucuronide Not Detected ng/mL Cutoff: 20 39 Opioid Interpretation See Comment 40 Lipid Profile 09/19/2018 [facility] Triglycerides 273 mg/dL 41 (Trig/Chol/HDL) [address] [place] [address] [phone] Cholesterol 353 mg/dL 42 HDL Cholesterol 45.8 mg/dL 43 LDL Cholesterol 253 mg/dL 44 Liver 09/19/2018 [facility] Direct 0.10 Normal 0.03-0.18 Function [address] [facility] Bilirubin mg/[place] [address] [phone] Indirect Bilirubin 0.4 mg/dL Normal 0.3-1.0 Comp Metabolic 09/19/2018 [facility] Sodium 140 mmol/L Normal 135-145 Panel [address] [place] [address] [phone] Potassium 4.0 mmol/L Normal 3.5-5.0 Chloride 105 [...] Egfr 104.3 >60 45 Laboratory test 09/19/2018 [facility] Hemoglobin A1c 7.8 % High 4.0-5.[address] (Glyco HGB) [place] [address] [phone] Urine 09/19/2018 [facility] Ur Microalbumin < 15.[address] (mg/L) mg/[place] [address] [phone] Urine Creatinine 92.55 mg/dL Urine Microalbumin/Creatinine TNP <31 47 1 REFERENCE VALUE Cutoff: 500 2 REFERENCE [...] REFERENCE VALUE Cutoff: 100 9 Armida Beltre, Contin; Also a minor metabolite (10%) of codeine and can be seen in low concentrations (<2,000 ng/mL) with poppy seed ingestion. 10 Metabolite of morphine REFERENCE VALUE Cutoff: 100 11 Metabolite of heroin 12 Lortab, Humphrey, Vicodin; Also a very minor metabolite of [...] developed and its performance characteristics determined by [facility] in a manner consistent with CLIA requirements. This test has not been cleared or approved by the U.S. Food and Drug Administration. Test Performed by: [facility] - [address] [address] 41 Desirable: <150 Borderline High: 150-199 High: [...] in selective patients <6.0%. Please refer to [place] [employer] diabetic care guidelines for further information. 47 Unable to calculate due to low microalbumin Procedures Date Code Description Status 09/05/2017 [id number] Mammogram Completed 12/31/2014 [id number] Diabetic Retinal Eye Exam Completed 01/21/2013 [id number] Diabetic Retinal Eye Exam Completed 04/12/2011 [id number] Mammogram Completed 01/13/2009 [id number] Colonoscopy Completed 12/21/2007 [id number] Mammogram Completed 08/01/2006 [id number] Bone Mineral Density Test Completed Medical Devices Description No Information Available Encounters Type Date Location Provider Dx Diagnosis Office Visit 12/18/2018 [facility] Internal Prabha Baires Z63.4 Disappearance and 3:40p Medicine - [facility] N.P. 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 12/18/2018 E11.9 Type 2 diabetes mellitus without complications Liset Francis.P. 12/18/2018 I10 Essential (primary) hypertension Prabha Baires N.P. 09/28/2018 E11.9 Type 2 diabetes mellitus without complications Gustabo Medina NP 09/28/2018 I10 Essential (primary) hypertension Gustabo Medina NP 09/28/2018 E78.00 Pure hypercholesterolemia, unspecified Gustabo Medina NP 09/28/2018 L20.9 Atopic dermatitis, unspecified Gustabo Medina NP 09/28/2018 H93.11 Tinnitus, right ear Gustabo Medina NP 09/28/2018 F32.89 Other specified depressive episodes Gustabo Medina NP Plan of Treatment Future Appointment(s):01/16/2019 8:40 am - Gustabo Medina NP at [facility] Internal Medicine - [facility]12/31/2018 - Gustabo Medina NPE11.9 Type 2 diabetes mellitus without complicationsComments:Your A1c is 6.8% down from 7.8%. This is good. Continue taking current medications.Follow up:3 months, 20 minRecommendations: See your operations scheduler every year. It is OK to go every 2 years if he finds no retinal damage from diabetes. Ask your operations scheduler to communicate his findings to us. See a parts product analyst every 6 months if you have numbness in your feet or a history of foot ulcers.I10 Essential (primary) hypertensionComments: HYPERTENSION:Well controlled on current regimen. Continue present management.Z63.4 Disappearance and of family ppnpidA26.89 Other specified depressive episodesComments:I have referred you to the provider we discussed.If at any time you feel that you may harm yourself or someone else please go to the ER as we discussed.Referral:Kiley Marte N.P., Nurse PractitionerFollow up:Was referred to Milady Chaney. Any progress on that? f/u RZ or MV 2 weeks. Goals 12/31/2018 - Gustabo Medina NPE11.9 Type 2 diabetes mellitus without complicationsGoal Hemoglobin A1c is less than 7.0%. Goal Blood pressure is less than 130/85. Functional Status Description No Information Available Mental Status Description No Information Available Referrals Refer to Reason for Referral Status Appt Date Kiley Marte, N.P. Pt. with history of depression. Partner Created and she has been worsening. Having occasional delusions that she sees him places. Concern for bipolar due to periods of elevated mood followed by deep depression. [address] [place] [address] [phone] Milady Chaney, CONSERVATION PLANNER Patient just lost her partner of 10 years. She Created is struggling and is referred for counseling. Milady does not take pts insurance [address] [place] [address] [phone] Rich Morrell MD Closed [address] [place] [address] [phone]
[2019-01-11 11:05] LABS: ABS Basophils 0.1 10^3/ul (0-0.2); ABS Monocytes 0.9 10^3/ul (0-0.8); ABS Neutrophils 9.2 10^3/ul (1.5-7.7); Eosinophil % 0.3 %; Hematocrit 43 % (35-47); Hemoglobin 15.1 g/dL (12.0-16.0); Lymphocyte % 22.7 %; Mean Corpuscular HGB Conc 35 g/dL (31-36); Mean Corpuscular Hemoglobin 30 pg (27-31); Mean Corpuscular Volume 86 fL (80-97); Mean Platelet Volume 6.6 fL (7.4-10.4); Platelet Count 330 10^3/uL (150-450); Red Blood Count 4.98 10^6 /uL (3.70-4.87); Red Cell Distribution Width 14 % (10-15); White Blood Count 13.2 10^3/uL (3.5-10.8)
[2019-01-11 11:33] LABS: ALT 22 U/L (7-52); AST 21 U/L (13-39); Albumin 4.7 g/dL (3.2-5.2); Albumin/Globulin Ratio 1.6 (1-3); Alkaline Phosphatase 80 U/L (34-104); Anion Gap 7 mmol/L (2-11); BUN/Creatinine Ratio 17.4 (8-20); Blood Urea Nitrogen 12 mg/dL (6-24); CO2 Carbon Dioxide 28 mmol/L (22-32); Calcium 10.3 mg/dL (8.6-10.3); Chloride 103 mmol/L (101-111); EGFR African American 104.3 (>60); EGFR Non-African American 86.2 (>60); Glucose 85 mg/dL (70-100); Sodium 138 mmol/L (135-145); Total Protein 7.7 g/dL (6.4-8.9)
[2019-01-11 11:59] LABS: Acetaminophen < 15 mcg/mL; Alcohol < 10 mg/dL (<10); Salicylate < 2.50 mg/dL (<30)
[2019-01-11 12:13] LABS: TSH (Thyroid Stimulating Horm) 2.02 mcIU/mL (0.34-5.60)
[2019-01-11] MEDS: Polyethylene Glycol 3350* 17 GM PACKET PO PRN (20:28)
[2019-01-11] MEDS ORDERED: ARIPiprazole TAB* 2 MG PO ONE (21:00)
[2019-01-11] MEDS ORDERED: Al Hydrox/Mg Hydrox/Simet LIQ* 30 ML UDC PO PRN (21:09)
[2019-01-11] MEDS ORDERED: Acetaminophen TAB* 325 MG PO PRN (21:09)
[2019-01-11] MEDS ORDERED: diPHENhydraMINE PO* 25 MG PO PRN (21:13)
[2019-01-11] MEDS ORDERED: Ibuprofen TAB* 200 MG PO PRN (21:13)
[2019-01-11] MEDS ORDERED: Carisoprodol TAB* 350 MG PO PRN (21:13)
[2019-01-12] MEDS: Polyethylene Glycol 3350* 17 GM PACKET PO PRN (06:56)
[2019-01-12 08:03] LABS: HDL Cholesterol 47.5 mg/dL
[2019-01-12] MEDS: Magnesium Oxide TAB* 400 MG PO SCH (08:28)
[2019-01-12] MEDS: ARIPiprazole TAB* 5 MG PO SCH (08:28)
[2019-01-12] MEDS: Vitamin THERAPEUTIC TAB PO SCH (08:28)
[2019-01-12] MEDS: PARoxetine HCL TAB* 20 MG PO SCH (08:29)
[2019-01-12] MEDS: glipiZIDE TAB* 5 MG PO SCH ×2 (08:29→18:15)
[2019-01-12] MEDS: Losartan TAB* 25 MG PO SCH (08:32)
[2019-01-12] MEDS: Fluticasone NASAL SPRAY 50MCG* 16 gm SPRAY BTL BOTH NARES SCH (08:33)
[2019-01-12] MEDS: Pioglitazone TAB* 30 MG PO SCH (08:34)
[2019-01-12] MEDS ORDERED: Naproxen 500 MG # 4 TAB PREPK 500 MG PAK PO SCH (09:00)
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
[2019-01-12] MEDS: VITAMIN A 8000 UNIT PO SCH (10:36)
[2019-01-12] MEDS: FLAXSEED OIL 1000 MG PO SCH ×2 (10:36→23:31)
[2019-01-12] MEDS: Triamcinolone 0.025% OINT * 15 GM TUBE TOPICAL SCH ×2 (10:36→23:33)
[2019-01-12] MEDS: Ibuprofen TAB* 600 MG PO PRN (11:41)
[2019-01-12] MEDS: hydrOXYzine HCL TAB* 25 MG PO PRN (18:15)
[2019-01-12] MEDS: Naproxen TAB* 250 MG PO SCH (23:33)
[2019-01-13] MEDS: hydrOXYzine HCL TAB* 25 MG PO PRN ×4 (02:12→21:26)
[2019-01-13] MEDS: VITAMIN A 8000 UNIT PO SCH (08:16)
[2019-01-13] MEDS: Triamcinolone 0.025% OINT * 15 GM TUBE TOPICAL SCH (08:17)
[2019-01-13] MEDS: Fluticasone NASAL SPRAY 50MCG* 16 gm SPRAY BTL BOTH NARES SCH (08:17)
[2019-01-13] MEDS: FLAXSEED OIL 1000 MG PO SCH (08:21)
[2019-01-13] MEDS: Naproxen TAB* 250 MG PO SCH ×2 (08:21→20:51)
[2019-01-13] MEDS: Losartan TAB* 25 MG PO SCH (08:24)
[2019-01-13] MEDS: ARIPiprazole TAB* 5 MG PO SCH (08:24)
[2019-01-13] MEDS: PARoxetine HCL TAB* 20 MG PO SCH (08:25)
[2019-01-13] MEDS: Vitamin THERAPEUTIC TAB PO SCH (08:25)
[2019-01-13] MEDS: glipiZIDE TAB* 5 MG PO SCH ×2 (08:25→17:41)
[2019-01-13] MEDS: Magnesium Oxide TAB* 400 MG PO SCH (08:26)
[2019-01-13] MEDS: Pioglitazone TAB* 30 MG PO SCH (09:46)
[2019-01-13] MEDS: Ibuprofen TAB* 600 MG PO PRN ×2 (13:41→20:22)
--- NOTE | 2019-01-13 20:36 | PN ---
Subjective - Subjective Date of Service: 01/13/19 Service Type: [id number] Hosp care 15 min low complexity Subjective: Moody reports that she feels a lot better with the supports and current meds she is on. Voices are less intense ans she hasn't been thinking about suicide anymore rather want to be involved with her recovery from grieving and depression. Appears to be involve in groups and other unit activities. Objective - General Observations Appearance: Neat, Well Groomed Appears Stated Age: Yes Stature: WNL Posture: WNL Eye Contact: Average Behavior/Activity: WNL - Interaction Observations Attitude Towards Examiner: Cooperative Stated Mood: Euthymic Affect: Full Speech Pattern/Tone: Clear, Appropriate Thought Process: Coherent, Goal Directed Perception: WNL Thought Content: WNL Hallucination Type: Auditory Delusion Type: Denies - Cognitive Function Orientation: A&O x 4 Level of Consciousness: Awake, Alert Cognition: WNL Estimated Intelligence: Normal Insight: WNL Judgment Within Normal Limits: Yes - Medication Compliance Cooperative with Inpatient Medication Regimen: Yes - Group Participation Participates in Group Activities: Yes Assessment - Assessment Merits Inpatient Hospitalization: For Immediate Safety, For Stabilization, Pending Safe DC Plan Plan - Plan Treatment Plan: Name: MOODY BURKETT Birthdate: 1955 [id number] Continued Medication Management: Continue Outpt Medication Medications: Current Medications Acetaminophen (Tylenol Tab*) 650 mg PO Q4H PRN PRN Reason: for pain; or Temp >101 F Al Hydrox/Mg Hydrox/Simethicone (Maalox Plus*) 30 ml PO Q4H PRN PRN Reason: INDIGESTION Aripiprazole (Abilify Tab*) 5 mg PO DAILY [facility] Last Admin: 01/13/19 08:24 Dose: 5 mg Carisoprodol (Soma Tab*) 350 mg PO TID PRN PRN Reason: SPASMS - MUSCLE Diphenhydramine HCl (Benadryl Po*) 25 mg PO Q6H PRN PRN Reason: Allergy Symptoms Fluticasone Propionate (Flonase Nasal [place] 50mcg*) 2 spray BOTH NARES DAILY [facility] Last Admin: 01/13/19 08:17 Dose: 2 spray Glipizide (Glucotrol Tab*) 10 mg PO QPM [facility] Last Admin: 01/13/19 17:41 Dose: 10 mg Glipizide (Glucotrol Tab*) 10 mg PO QAM [facility] Last Admin: 01/13/19 08:25 Dose: 10 mg Hydroxyzine HCl (Atarax Tab*) 25 mg PO Q4H PRN PRN Reason: anxiety/insomnia Last Admin: 01/13/19 17:41 Dose: 25 mg Ibuprofen (Motrin Tab*) 600 mg PO Q6H PRN PRN Reason: PAIN - MODERATE Last Admin: 01/13/19 20:22 Dose: 600 mg Losartan Potassium (Cozaar Tab*) 50 mg PO DAILY [facility] Last Admin: 01/13/19 08:24 Dose: 50 mg Magnesium Oxide (Magox 400 Tab*) 400 mg PO DAILY [facility] Last Admin: 01/13/19 08:26 Dose: 400 mg Multivitamins (Theragran Tab*) 1 tab PO DAILY [facility] Last Admin: 01/13/19 08:25 Dose: 1 tab Naproxen (Naprosyn Tab*) 500 mg PO BID [facility] Last Admin: 01/13/19 08:21 Dose: Not Given Non-Formulary Medication (Flaxseed Oil [[place]-3 Flaxseed Oil]) 1,000 mg PO BID [facility] Last Admin: 01/13/19 08:21 Dose: Not Given Non-Formulary Medication (Vitamin A [Vitamin A]) 8,000 unit PO DAILY [facility] Last Admin: 01/13/19 08:16 Dose: Not Given Paroxetine HCl (Paxil Tab*) 20 mg PO DAILY [facility] Last Admin: 01/13/19 08:25 Dose: 20 mg Pioglitazone HCl (Actos Tab*) 45 mg PO DAILY [facility] Last Admin: 01/13/19 09:46 Dose: 45 mg Polyethylene Glycol/Electrolytes (Miralax*) 17 gm PO DAILY PRN PRN Reason: CONSTIPATION Last Admin: 01/12/19 06:56 Dose: 17 gm Triamcinolone Acetonide (Triamcinolone 0.025% Oint *) 1 applic TOPICAL BID [facility] Last Admin: 01/13/19 08:17 Dose: 1 applic - Discharge Plan Discharge Plan: Outpatient Follow Up Outpatient Program: [facility]
[2019-01-14] MEDS: Triamcinolone 0.025% OINT * 15 GM TUBE TOPICAL SCH ×3 (05:22→20:51)
[2019-01-14] MEDS: FLAXSEED OIL 1000 MG PO SCH ×3 (05:22→20:52)
[2019-01-14] MEDS: VITAMIN A 8000 UNIT PO SCH (08:51)
[2019-01-14] MEDS: Fluticasone NASAL SPRAY 50MCG* 16 gm SPRAY BTL BOTH NARES SCH (08:53)
[2019-01-14] MEDS: Magnesium Oxide TAB* 400 MG PO SCH (08:55)
[2019-01-14] MEDS: Vitamin THERAPEUTIC TAB PO SCH (08:55)
[2019-01-14] MEDS: glipiZIDE TAB* 5 MG PO SCH ×2 (08:56→18:28)
[2019-01-14] MEDS: PARoxetine HCL TAB* 20 MG PO SCH (08:56)
[2019-01-14] MEDS: Naproxen TAB* 250 MG PO SCH ×2 (08:57→20:51)
[2019-01-14] MEDS: Pioglitazone TAB* 30 MG PO SCH (08:57)
[2019-01-14] MEDS: ARIPiprazole TAB* 5 MG PO SCH (08:57)
[2019-01-14] MEDS: Losartan TAB* 25 MG PO SCH (08:57)
[2019-01-14] MEDS: hydrOXYzine HCL TAB* 25 MG PO PRN (15:50)
--- NOTE | 2019-01-14 17:53 | PN ---
Subjective - Subjective Date of Service: 01/14/19 Service Type: [id number] Hosp care 15 min low complexity Subjective: Moody is doing well and denies any SI today. Reports that her mood is good, eating and sleeping well and holding up well on of her . Objective - General Observations Appearance: Neat Appears Stated Age: Yes Stature: WNL Posture: WNL Eye Contact: Average Behavior/Activity: WNL - Interaction Observations Attitude Towards Examiner: Cooperative Stated Mood: Euthymic Affect: Full Speech Pattern/Tone: Clear, Appropriate, Normal Volume Thought Process: Coherent, Goal Directed Perception: WNL Thought Content: WNL Hallucination Type: Denies Delusion Type: Denies - Cognitive Function Orientation: A&O x 4 Level of Consciousness: Awake, Alert, Appropriate Cognition: WNL Estimated Intelligence: Normal Insight: WNL Judgment Within Normal Limits: Yes - Medication Compliance Cooperative with Inpatient Medication Regimen: Yes - Group Participation Participates in Group Activities: Yes Assessment - Assessment Merits Inpatient Hospitalization: For Stabilization, Consolidate Improvements, Pending Safe DC Plan Clinical Impression: Improved significantly. Plan - Plan Treatment Plan: Name: MOODY BURKETT Birthdate: 1955 [id number] Continued Medication Management: Continue Outpt Medication Medications: Current Medications Acetaminophen (Tylenol Tab*) 650 mg PO Q4H PRN PRN Reason: for pain; or Temp >101 F Al Hydrox/Mg Hydrox/Simethicone (Maalox Plus*) 30 ml PO Q4H PRN PRN Reason: INDIGESTION Aripiprazole (Abilify Tab*) 5 mg PO DAILY [facility] Last Admin: 01/14/19 08:57 Dose: 5 mg Carisoprodol (Soma Tab*) 350 mg PO TID PRN PRN Reason: SPASMS - MUSCLE Diphenhydramine HCl (Benadryl Po*) 25 mg PO Q6H PRN PRN Reason: Allergy Symptoms Fluticasone Propionate (Flonase Nasal [place] 50mcg*) 2 spray BOTH NARES DAILY [facility] Last Admin: 01/14/19 08:53 Dose: 2 spray Glipizide (Glucotrol Tab*) 10 mg PO QPM [facility] Last Admin: 01/13/19 17:41 Dose: 10 mg Glipizide (Glucotrol Tab*) 10 mg PO QAM [facility] Last Admin: 01/14/19 08:56 Dose: 10 mg Hydroxyzine HCl (Atarax Tab*) 25 mg PO Q4H PRN PRN Reason: anxiety/insomnia Last Admin: 01/14/19 15:50 Dose: 25 mg Ibuprofen (Motrin Tab*) 600 mg PO Q6H PRN PRN Reason: PAIN - MODERATE Last Admin: 01/13/19 20:22 Dose: 600 mg Losartan Potassium (Cozaar Tab*) 50 mg PO DAILY [facility] Last Admin: 01/14/19 08:57 Dose: 50 mg Magnesium Oxide (Magox 400 Tab*) 400 mg PO DAILY [facility] Last Admin: 01/14/19 08:55 Dose: 400 mg Multivitamins (Theragran Tab*) 1 tab PO DAILY [facility] Last Admin: 01/14/19 08:55 Dose: 1 tab Naproxen (Naprosyn Tab*) 500 mg PO BID [facility] Last Admin: 01/14/19 08:57 Dose: Not Given Non-Formulary Medication (Flaxseed Oil [[place]-3 Flaxseed Oil]) 1,000 mg PO BID [facility] Last Admin: 01/14/19 08:50 Dose: Not Given Non-Formulary Medication (Vitamin A [Vitamin A]) 8,000 unit PO DAILY [facility] Last Admin: 01/14/19 08:51 Dose: Not Given Paroxetine HCl (Paxil Tab*) 20 mg PO DAILY [facility] Last Admin: 01/14/19 08:56 Dose: 20 mg Pioglitazone HCl (Actos Tab*) 45 mg PO DAILY [facility] Last Admin: 01/14/19 08:57 Dose: 45 mg Polyethylene Glycol/Electrolytes (Miralax*) 17 gm PO DAILY PRN PRN Reason: CONSTIPATION Last Admin: 01/12/19 06:56 Dose: 17 gm Triamcinolone Acetonide (Triamcinolone 0.025% Oint *) 1 applic TOPICAL BID [facility] Last Admin: 01/14/19 08:51 Dose: Not Given - Discharge Plan Discharge Plan: Outpatient Follow Up
[2019-01-14] MEDS: Ibuprofen TAB* 600 MG PO PRN (18:29)
[2019-01-15] MEDS: glipiZIDE TAB* 5 MG PO SCH (08:53)
[2019-01-15] MEDS: ARIPiprazole TAB* 5 MG PO SCH (08:53)
[2019-01-15] MEDS: PARoxetine HCL TAB* 20 MG PO SCH (08:53)
[2019-01-15] MEDS: Losartan TAB* 25 MG PO SCH (08:53)
[2019-01-15] MEDS: Magnesium Oxide TAB* 400 MG PO SCH (08:53)
[2019-01-15] MEDS: Vitamin THERAPEUTIC TAB PO SCH (08:53)
[2019-01-15] MEDS: Naproxen TAB* 250 MG PO SCH (08:53)
[2019-01-15] MEDS: Pioglitazone TAB* 30 MG PO SCH (08:54)
[2019-01-15] MEDS: Fluticasone NASAL SPRAY 50MCG* 16 gm SPRAY BTL BOTH NARES SCH (08:54)
[2019-01-15] MEDS: Triamcinolone 0.025% OINT * 15 GM TUBE TOPICAL SCH (08:55)
[2019-01-15] MEDS: FLAXSEED OIL 1000 MG PO SCH (10:32)
[2019-01-15] MEDS: VITAMIN A 8000 UNIT PO SCH (10:32)
[2019-01-15] MEDS: Ibuprofen TAB* 600 MG PO PRN (11:44)
[2019-01-15 11:55] VITALS: BP 124/62
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
== END 2019-01-15 13:53 | disposition home or self-care (01) | DRG 754 ==
LOC: ED 10:32 → BSU 13:27
PROVIDERS: ADMIT Psychiatry & Neurology Psychiatry; ATTEND Psychiatry & Neurology Psychiatry
DX: F43.21 Adjustment disorder with depressed mood (principal); R45.851 Suicidal ideations; Z87.820 Personal history of traumatic brain injury
CPT/HCPCS: 36415; 80053; 80061; 80320; 80329; 83036; 84443; 85025; 99222; 99231; 99238; 99284; A9270-GY; G0480